=== PATIENT | male | born 1965 | race African-American/Black ===

== ENCOUNTER 2018-07-12 18:54 | Observation (INO) | payer BC ==
--- NOTE | 2018-07-12 19:09 | EDM.PDOC ---
ED HPI GENERAL MEDICAL PROBLEM - General Chief Complaint: Neuro Symptoms/Deficits Stated Complaint: STOKE Time Seen by Provider: 07/12/18 19:01 - History of Present Illness INITIAL COMMENTS - FREE TEXT/NARRATIVE: HISTORY AND PHYSICAL: History of present illness: Patient is 53-year-old black male presents with a concern of left facial numbness and weakness in left arm numbness that started approximately 3 PM he states he noticed when drinking any liquid would travel down his face. He denies postauricular pain patient denies chest pain shortness of breath or other concern. Review of systems: As per history of present illness and below otherwise all systems reviewed and negative. Past medical history: As per history of present illness and as reviewed below otherwise noncontributory. Surgical history: As per history of present illness and as reviewed below otherwise noncontributory. Social history: No reported history of drug or alcohol abuse. Family history: As per history of present illness and as reviewed below otherwise noncontributory. Physical exam: HEENT: Atraumatic, normocephalic, pupils reactive, negative for conjunctival pallor or scleral icterus, mucous membranes moist, throat clear, neck supple, nontender, trachea midline. Lungs: Clear to auscultation, breath sounds equal bilaterally, chest nontender. Heart: S1S2, regular, negative for clicks, rubs, or JVD. Abdomen: Soft, nondistended, nontender. Negative for masses or hepatosplenomegaly. Negative for costovertebral tenderness. Pelvis: Stable nontender. Genitourinary: Deferred. Rectal: Deferred. Extremities: Atraumatic, negative for cords or calf pain. Neurovascular unremarkable. Neuro: Awake, alert, oriented. Patient has left facial droop paresthesia noted there does appear to be sparing of his left forehead he has subjective paresthesia in his left upper extremity there is no other motor or sensory deficits and cranial nerves are otherwise intact Diagnostics: CBC CMP troponin PT/INR chest x-ray EKG CT brain Therapeutics: IV O2 monitor Impression: #1 Left facial droop etiology to be determined #2 subjective paresthesia left upper extremity Definitive disposition and diagnosis as appropriate pending reevaluation and review of above. - Related Data Allergies Allergy/AdvReac Type Severity Reaction Status Date / Time No Known Allergies Allergy Verified 07/12/18 19:39 Home Meds: Home Meds hydroCHLOROthiazide [Hydrochlorothiazide] 1 tab PO DAILY 07/12/18 [History] ED ROS GENERAL - Review of Systems Review Of Systems: ROS reveals no pertinent complaints other than HPI. ED EXAM, GENERAL - Physical Exam Exam: See Below (See dictation) Course - Vital Signs Last Recorded V/S: Last Vital Signs Temp 36.4 C 07/12/18 18:54 Pulse 70 07/12/18 18:54 Resp 18 07/12/18 18:54 BP 173/95 H 07/12/18 18:54 Pulse Ox 98 07/12/18 18:54 - Orders/Labs/Meds Orders: Active Orders 24 hr Category Date Time Status Antiembolic Devices [RC] PER UNIT ROUTINE Care 07/12/18 20:40 Active EKG Documentation Completion [RC] STAT Care 07/12/18 19:03 Active Oxygen Therapy [RC] PRN Care 07/12/18 20:39 Active Up ad Michela [RC] ASDIRECTED Care 07/12/18 20:39 Active VTE/DVT Education [RC] PER UNIT ROUTINE Care 07/12/18 20:39 Active Vital Signs [RC] Q4H Care 07/12/18 20:39 Active Regular Diet [DIET] Diet 07/12/18 Breakfast Active Brain w wo Cont [MR] Stat Exams 07/12/18 20:42 Ordered BASIC METABOLIC PANEL,BMP [CHEM] AM Lab 07/13/18 05:11 Ordered CBC WITH AUTO DIFF [HEME] AM Lab 07/13/18 05:11 Ordered GLYCOSYLATED HEMOGLOBIN,HGBA1C [CHEM] AM Lab 07/13/18 05:11 Ordered MAGNESIUM [CHEM] Stat Lab 07/12/18 19:17 Received Sodium Chloride 0.9% [Normal Saline] 1,000 ml Med 07/12/18 19:15 Active IV STAT Sequential Compression Device [OM.PC] Per Unit Routine Oth 07/12/18 20:40 Ordered Resuscitation Status Routine Resus Stat 07/12/18 20:39 Ordered Medication Orders Sodium Chloride (Normal Saline) 1,000 mls @ 125 mls/hr IV STAT GLORY Last Admin: 07/12/18 19:28 Dose: 125 mls/hr Labs: Laboratory Tests 07/12/18 07/12/18 07/12/18 Range/Units 19:17 19:17 19:17 WBC 13.62 H (4.0-11.0) K/uL RBC 4.96 (4.50-5.90) M/uL Hgb 15.1 (13.0-17.0) g/dL Hct 44.6 (38.0-50.0) % MCV 89.9 (80.0-98.0) fL MCH 30.4 (27.0-32.0) pg MCHC 33.9 (31.0-37.0) g/dL RDW Std Deviation 50.3 (28.0-62.0) fl RDW Coeff of Chary 15 (11.0-15.0) % Plt Count 318 (150-400) K/uL MPV 9.10 (7.40-12.00) fL Neut % (Auto) 57.5 (48.0-80.0) % Lymph % (Auto) 32.2 (16.0-40.0) % [place]ullen % (Auto) 8.4 (0.0-15.0) % Eos % (Auto) 1.7 (0.0-7.0) % Baso % (Auto) 0.2 (0.0-1.5) % Neut # (Auto) 7.8 H (1.4-5.7) K/uL Lymph # (Auto) 4.4 H (0.6-2.4) K/uL [place]mullen # (Auto) 1.1 H (0.0-0.8) K/uL Eos # (Auto) 0.2 (0.0-0.7) K/uL Baso # (Auto) 0.0 (0.0-0.1) K/uL Nucleated RBC % 0.0 /100WBC Nucleated RBCs # 0 K/uL INR 0.92 Sodium 137 (136-148) mmol/L Potassium 3.5 (3.5-5.1) mmol/L Chloride 102 (98-107) mmol/L Carbon Dioxide 23.9 (21.0-32.0) mmol/L BUN 10 (7.0-18.0) mg/dL Creatinine 1.2 (0.8-1.3) mg/dL Est Cr Clr Drug Dosing TNP Estimated GFR (MDRD) > 60.0 ml/min Glucose 133 H (74-106) mg/dL Calcium 8.9 (8.5-10.1) mg/dL Total Bilirubin 0.2 (0.2-1.0) mg/dL AST 12 L (15-37) IU/L ALT 27 (14-63) IU/L Alkaline Phosphatase 119 H (46-116) U/L Troponin I < 0.050 (0.000-0.056) ng/mL Total Protein 7.3 (6.4-8.2) g/dL Albumin 3.5 (3.4-5.0) g/dL Globulin 3.8 (2.6-4.0) g/dL Albumin/Globulin Ratio 0.9 (0.9-1.6) TSH 3rd Generation 1.68 (0.36-3.74) uIU/mL Urine Color Urine Appearance Urine pH (5.0-8.0) Ur Specific [place] (1.001-1.035) Urine Protein (NEGATIVE) mg/dL Urine Glucose (UA) (NEGATIVE) mg/dL Urine Ketones (NEGATIVE) mg/dL Urine Occult Blood (NEGATIVE) Urine Nitrite (NEGATIVE) Urine Bilirubin (NEGATIVE) Urine Urobilinogen (<2.0) EU/dL Ur Leukocyte Esterase (NEGATIVE) Urine RBC (0-2/HPF) Urine WBC (0-5/HPF) Ur Epithelial Cells (NONE-FEW) Urine Bacteria (NEGATIVE) Urine Opiates Screen (NEGATIVE) Ur Oxycodone Screen (NEGATIVE) Urine Methadone Screen (NEGATIVE) Ur Barbiturates Screen (NEGATIVE) Ur Phencyclidine Scrn (NEGATIVE) Ur Amphetamine Screen (NEGATIVE) U Methamphetamines Scrn (NEGATIVE) U Benzodiazepines Scrn (NEGATIVE) U Cocaine Metab Screen (NEGATIVE) U Marijuana (THC) Screen (NEGATIVE) 07/12/18 07/12/18 Range/Units 20:24 20:24 WBC (4.0-11.0) K/uL RBC (4.50-5.90) M/uL Hgb (13.0-17.0) g/dL Hct (38.0-50.0) % MCV (80.0-98.0) fL MCH (27.0-32.0) pg MCHC (31.0-37.0) g/dL RDW Std Deviation (28.0-62.0) fl RDW Coeff of Chary (11.0-15.0) % Plt Count (150-400) K/uL MPV (7.40-12.00) fL Neut % (Auto) (48.0-80.0) % Lymph % (Auto) (16.0-40.0) % [place]mullen % (Auto) (0.0-15.0) % Eos % (Auto) (0.0-7.0) % Baso % (Auto) (0.0-1.5) % Neut # (Auto) (1.4-5.7) K/uL Lymph # (Auto) (0.6-2.4) K/uL [place]mullen # (Auto) (0.0-0.8) K/uL Eos # (Auto) (0.0-0.7) K/uL Baso # (Auto) (0.0-0.1) K/uL Nucleated RBC % /100WBC Nucleated RBCs # K/uL INR Sodium (136-148) mmol/L Potassium (3.5-5.1) mmol/L Chloride (98-107) mmol/L Carbon Dioxide (21.0-32.0) mmol/L BUN (7.0-18.0) mg/dL Creatinine (0.8-1.3) mg/dL Est Cr Clr Drug Dosing Estimated GFR (MDRD) ml/min Glucose (74-106) mg/dL Calcium (8.5-10.1) mg/dL Total Bilirubin (0.2-1.0) mg/dL AST (15-37) IU/L ALT (14-63) IU/L Alkaline Phosphatase (46-116) U/L Troponin I (0.000-0.056) ng/mL Total Protein (6.4-8.2) g/dL Albumin (3.4-5.0) g/dL Globulin (2.6-4.0) g/dL Albumin/Globulin Ratio (0.9-1.6) TSH 3rd Generation (0.36-3.74) uIU/mL Urine Color YELLOW Urine Appearance CLEAR Urine pH 6.0 (5.0-8.0) Ur Specific [place] 1.015 (1.001-1.035) Urine Protein NEGATIVE (NEGATIVE) mg/dL Urine Glucose (UA) NEGATIVE (NEGATIVE) mg/dL Urine Ketones NEGATIVE (NEGATIVE) mg/dL Urine Occult Blood TRACE-INTACT H (NEGATIVE) Urine Nitrite NEGATIVE (NEGATIVE) Urine Bilirubin NEGATIVE (NEGATIVE) Urine Urobilinogen 0.2 (<2.0) EU/dL Ur Leukocyte Esterase NEGATIVE (NEGATIVE) Urine RBC 0-2 (0-2/HPF) Urine WBC 0-2 (0-5/HPF) Ur Epithelial Cells RARE (NONE-FEW) Urine Bacteria RARE (NEGATIVE) Urine Opiates Screen NEGATIVE (NEGATIVE) Ur Oxycodone Screen NEGATIVE (NEGATIVE) Urine Methadone Screen NEGATIVE (NEGATIVE) Ur Barbiturates Screen NEGATIVE (NEGATIVE) Ur Phencyclidine Scrn NEGATIVE (NEGATIVE) Ur Amphetamine Screen NEGATIVE (NEGATIVE) U Methamphetamines Scrn NEGATIVE (NEGATIVE) U Benzodiazepines Scrn NEGATIVE (NEGATIVE) U Cocaine Metab Screen NEGATIVE (NEGATIVE) U Marijuana (THC) Screen NEGATIVE (NEGATIVE) Meds: Medications Generic Name Dose Route Start Last Admin Trade Name Freq PRN Reason Stop Dose Admin Sodium Chloride 1,000 mls @ 125 mls/hr 07/12/18 19:15 07/12/18 19:28 Normal Saline IV 125 mls/hr STAT GLORY Administration Departure - Departure Time of Disposition: 20:55 Disposition: Refer to Observation Condition: Good Clinical Impression: Facial paresis, Paresthesia - Discharge Information Referrals: PCP,Unknown [Primary Care Provider] - Forms: ED Department Discharge - My Orders Last 24 Hours: My Active Orders 07/12/18 19:03 EKG Documentation Completion [RC] STAT 07/12/18 19:15 Sodium Chloride 0.9% [Normal Saline] 1,000 ml IV STAT - Assessment/Plan Last 24 Hours: My Active Orders 07/12/18 19:03 EKG Documentation Completion [RC] STAT 07/12/18 19:15 Sodium Chloride 0.9% [Normal Saline] 1,000 ml IV STAT
[2018-07-12] MEDS: Sodium Chloride 0.9% 1,000 ML IV SCH (19:28)
--- NOTE | 2018-07-12 19:31 | CT ---
INDICATION: Altered mental status. COMPARISON: None available. TECHNIQUE: CT examination of the head was performed with 3 mm thick axial sections without intravenous contrast. Images were obtained from the vertex of the skull through the skull base, and I examined the images with the brain and bone windows. Please note that all CT scans at this facility use dose modulation, iterative reconstruction, and/or weight-based dosing when appropriate to reduce radiation dose to as low as reasonably achievable. FINDINGS: : The brain is normal in appearance for the patient`s age on today`s study, with no sign of mass lesion, mass effect, hemorrhage, or edema. The ventricles and sulci are normal in appearance for the patient`s age. The visualized portions of the orbits are normal in appearance. The visualized portions of the paranasal sinuses and mastoids are clear. The osseous structures are normal in their appearance with no sign of abnormality in the skull base or calvarium. IMPRESSION: Normal noncontrast CT of the head for the patient`s age. Please note that all CT scans at this facility use dose modulation, iterative reconstruction, and/or weight-based dosing when appropriate to reduce radiation dose to as low as reasonably achievable. Dictated by Jatinder Clark MD @ Jul 12 2018 7:27PM Signed by Dr. Jatinder Clark @ Jul 12 2018 7:29PM
[2018-07-12 19:55] LABS: CHLORIDE,CL 102 mmol/L (98-107); SODIUM,NA 137 mmol/L (136-148)
--- NOTE | 2018-07-12 20:23 | CR ---
HISTORY: Chest pain. Shortness of breath. COMPARISON: None available FINDINGS: A portable semi-erect AP lordotic view of the chest was obtained at 1914 hours. The lungs are clear. No focal or diffuse infiltrates are present. The heart is top-normal in size. The mediastinum is normal in appearance. The osseous structures are normal in appearance for the patient`s age. IMPRESSION: Normal portable chest single view. Dictated by Jatinder Clark MD @ Jul 12 2018 8:21PM Signed by Dr. Jatinder Clark @ Jul 12 2018 8:22PM
--- NOTE | 2018-07-12 20:46 | PCM.HP ---
H&P History of Present Illness - General Date of Service: 07/12/18 - History of Present Illness Initial Comments - Free Text/Narative: 53 yo male with pmh of hypertension who presents with one day history of facial droop. Patient reports for past month he has been having right and left arm numbness. Today his shoulder became numb as well as his left face. He reports he had difficulty controlling the muscles of his mouth and spilt his drink. He reported that his left eye became droopy. He denies any headache or fevers. In the ED he was found to have a normal CT head. He reports the numbness has greatly improved but know his left eyelid twitches uncontrollably. - Related Data Allergies/Adverse Reactions: Allergies Allergy/AdvReac Type Severity Reaction Status Date / Time No Known Allergies Allergy Verified 07/12/18 19:39 Home Medications: Home Meds hydroCHLOROthiazide [Hydrochlorothiazide] 1 tab PO DAILY 07/12/18 [History] Past Medical History Cardiovascular History: Reports: Hypertension - Infectious Disease History Infectious Disease History: Reports: None Social & Family History - Family History Family Medical History: Noncontributory - Tobacco Use Smoking Status *Q: Current Every Day Smoker Years of Tobacco use: 14 Packs/Tins Daily: 0.5 - Recreational Drug Use Recreational Drug Use: No H&P Review of Systems - Review of Systems: Review Of Systems: ROS reveals no pertinent complaints other than HPI. Exam - Exam Exam: See Below - Vital Signs Vital Signs: Last Vital Signs Temp 36.4 C 07/12/18 18:54 Pulse 70 07/12/18 18:54 Resp 18 07/12/18 18:54 BP 173/95 H 07/12/18 18:54 Pulse Ox 98 07/12/18 18:54 Weight: 120 kg - Exam General: Alert, Oriented HEENT: Mucosa Moist & [place], Pupils Equal Lungs: Clear to Auscultation, Normal Respiratory Effort Cardiovascular: Regular Rate, Regular Rhythm GI/Abdominal Exam: Soft, Non-Tender Extremities: Non-Tender, No Pedal Edema Skin: Warm, Dry, Intact Neurological: Cranial Nerves Intact, Reflexes Equal Bilateral, Strength Equal Bilateral, Normal Speech, Normal Tone, Sensation Intact, Other (left eylid twitching) - Patient Data Lab Results Last 24 hrs: Laboratory Results - last 24 hr 07/12/18 07/12/18 07/12/18 Range/Units 19:17 19:17 19:17 WBC 13.62 H (4.0-11.0) K/uL RBC 4.96 (4.50-5.90) M/uL Hgb 15.1 (13.0-17.0) g/dL Hct 44.6 (38.0-50.0) % MCV 89.9 (80.0-98.0) fL MCH 30.4 (27.0-32.0) pg MCHC 33.9 (31.0-37.0) g/dL RDW Std Deviation 50.3 (28.0-62.0) fl RDW Coeff of Chary 15 (11.0-15.0) % Plt Count 318 (150-400) K/uL MPV 9.10 (7.40-12.00) fL Neut % (Auto) 57.5 (48.0-80.0) % Lymph % (Auto) 32.2 (16.0-40.0) % [place] % (Auto) 8.4 (0.0-15.0) % Eos % (Auto) 1.7 (0.0-7.0) % Baso % (Auto) 0.2 (0.0-1.5) % Neut # (Auto) 7.8 H (1.4-5.7) K/uL Lymph # (Auto) 4.4 H (0.6-2.4) K/uL [place] # (Auto) 1.1 H (0.0-0.8) K/uL Eos # (Auto) 0.2 (0.0-0.7) K/uL Baso # (Auto) 0.0 (0.0-0.1) K/uL Nucleated RBC % 0.0 /100WBC Nucleated RBCs # 0 K/uL INR 0.92 Sodium 137 (136-148) mmol/L Potassium 3.5 (3.5-5.1) mmol/L Chloride 102 (98-107) mmol/L Carbon Dioxide 23.9 (21.0-32.0) mmol/L BUN 10 (7.0-18.0) mg/dL Creatinine 1.2 (0.8-1.3) mg/dL Est Cr Clr Drug Dosing TNP Estimated GFR (MDRD) > 60.0 ml/min Glucose 133 H (74-106) mg/dL Calcium 8.9 (8.5-10.1) mg/dL Total Bilirubin 0.2 (0.2-1.0) mg/dL AST 12 L (15-37) IU/L ALT 27 (14-63) IU/L Alkaline Phosphatase 119 H (46-116) U/L Troponin I < 0.050 (0.000-0.056) ng/mL Total Protein 7.3 (6.4-8.2) g/dL Albumin 3.5 (3.4-5.0) g/dL Globulin 3.8 (2.6-4.0) g/dL Albumin/Globulin Ratio 0.9 (0.9-1.6) TSH 3rd Generation 1.68 (0.36-3.74) uIU/mL Result Diagrams: 07/12/18 19:17 07/12/18 19:17 Problem List Initiated/Reviewed/Updated: Yes Orders Last 24hrs: Active Orders 24 hr Category Date Time Status Antiembolic Devices [RC] PER UNIT ROUTINE Care 07/12/18 20:40 Ordered EKG Documentation Completion [RC] STAT Care 07/12/18 19:03 Active Oxygen Therapy [RC] PRN Care 07/12/18 20:39 Ordered Up ad Michela [RC] ASDIRECTED Care 07/12/18 20:39 Ordered VTE/DVT Education [RC] PER UNIT ROUTINE Care 07/12/18 20:39 Ordered Vital Signs [RC] Q4H Care 07/12/18 20:39 Ordered Regular Diet [DIET] Diet 07/12/18 Breakfast Ordered BASIC METABOLIC PANEL,BMP [CHEM] AM Lab 07/13/18 05:11 Ordered CBC WITH AUTO DIFF [HEME] AM Lab 07/13/18 05:11 Ordered DRUG SCREEN, URINE [URCHEM] Stat Lab 07/12/18 20:24 Received MAGNESIUM [CHEM] Stat Lab 07/12/18 20:38 Ordered UA RFX TAN AND CULT IF INDIC [URIN] Stat Lab 07/12/18 20:24 Received Sodium Chloride 0.9% [Normal Saline] 1,000 ml Med 07/12/18 19:15 Active IV STAT Sequential Compression Device [OM.PC] Per Unit Routine Oth 07/12/18 20:40 Ordered Resuscitation Status Routine Resus Stat 07/12/18 20:39 Ordered Medication Orders Sodium Chloride (Normal Saline) 1,000 mls @ 125 mls/hr IV STAT GLORY Last Admin: 07/12/18 19:28 Dose: 125 mls/hr Assessment/Plan Comment:: 53 yo male admitted with paresthesia and facial droop. This appears likely to be a peripheral neuropathy. We will monitor overnight on telemetry.
[2018-07-13] MEDS: Sodium Chloride 0.9% 1,000 ML IV SCH ×2 (00:43→09:33)
[2018-07-13 06:50] LABS: CHLORIDE,CL 104 mmol/L (98-107); SODIUM,NA 140 mmol/L (136-148)
[2018-07-13 06:56] LABS: HEMOGLOBIN A1C 6.7 % (4.5-6.2)
--- NOTE | 2018-07-13 09:44 | PCM.PN ---
- General Info Date of Service: 07/13/18 Subjective Update: The patient is a 53 year old male who was admitted for facial droop and numbness /tingling in his arms. He reports improvement in the numbness/tingling of his arms and some improvement in his face. He reports difficulty drinking. We attempted a MRI today but he was unable to tolerate it even with Ativan. - Review of Systems General: Reports: No Symptoms HEENT: Reports: No Symptoms Pulmonary: Reports: No Symptoms Cardiovascular: Reports: No Symptoms Gastrointestinal: Reports: No Symptoms Genitourinary: Reports: No Symptoms Musculoskeletal: Reports: No Symptoms Skin: Reports: No Symptoms Neurological: Reports: No Symptoms Psychiatric: Reports: No Symptoms - Patient Data Vitals - Most Recent: Last Vital Signs Temp 98.1 F 07/13/18 07:32 Pulse 59 L 07/13/18 07:32 Resp 16 07/13/18 07:32 BP 134/74 07/13/18 07:32 Pulse Ox 96 07/13/18 07:32 Weight - Most Recent: 118.252 kg I&O - Last 24 Hours: Intake & Output 07/12/18 07/13/18 07/13/18 22:59 06:59 14:59 Intake Total 1480 Balance 1480 Lab Results Last 24 Hours: Laboratory Results - last 24 hr 07/12/18 07/12/18 07/12/18 Range/Units 19:17 19:17 19:17 WBC 13.62 H (4.0-11.0) K/uL RBC 4.96 (4.50-5.90) M/uL Hgb 15.1 (13.0-17.0) g/dL Hct 44.6 (38.0-50.0) % MCV 89.9 (80.0-98.0) fL MCH 30.4 (27.0-32.0) pg MCHC 33.9 (31.0-37.0) g/dL RDW Std Deviation 50.3 (28.0-62.0) fl RDW Coeff of Chary 15 (11.0-15.0) % Plt Count 318 (150-400) K/uL MPV 9.10 (7.40-12.00) fL Neut % (Auto) 57.5 (48.0-80.0) % Lymph % (Auto) 32.2 (16.0-40.0) % [place] % (Auto) 8.4 (0.0-15.0) % Eos % (Auto) 1.7 (0.0-7.0) % Baso % (Auto) 0.2 (0.0-1.5) % Neut # (Auto) 7.8 H (1.4-5.7) K/uL Lymph # (Auto) 4.4 H (0.6-2.4) K/uL [place] # (Auto) 1.1 H (0.0-0.8) K/uL Eos # (Auto) 0.2 (0.0-0.7) K/uL Baso # (Auto) 0.0 (0.0-0.1) K/uL Nucleated RBC % 0.0 /100WBC Nucleated RBCs # 0 K/uL INR 0.92 Sodium 137 (136-148) mmol/L Potassium 3.5 (3.5-5.1) mmol/L Chloride 102 (98-107) mmol/L Carbon Dioxide 23.9 (21.0-32.0) mmol/L BUN 10 (7.0-18.0) mg/dL Creatinine 1.2 (0.8-1.3) mg/dL Est Cr Clr Drug Dosing TNP Estimated GFR (MDRD) > 60.0 ml/min Glucose 133 H (74-106) mg/dL Hemoglobin A1c (4.5-6.2) % Calcium 8.9 (8.5-10.1) mg/dL Magnesium (1.8-2.4) mg/dL Total Bilirubin 0.2 (0.2-1.0) mg/dL AST 12 L (15-37) IU/L ALT 27 (14-63) IU/L Alkaline Phosphatase 119 H (46-116) U/L Troponin I < 0.050 (0.000-0.056) ng/mL Total Protein 7.3 (6.4-8.2) g/dL Albumin 3.5 (3.4-5.0) g/dL Globulin 3.8 (2.6-4.0) g/dL Albumin/Globulin Ratio 0.9 (0.9-1.6) TSH 3rd Generation 1.68 (0.36-3.74) uIU/mL Urine Color Urine Appearance Urine pH (5.0-8.0) Ur Specific [place] (1.001-1.035) Urine Protein (NEGATIVE) mg/dL Urine Glucose (UA) (NEGATIVE) mg/dL Urine Ketones (NEGATIVE) mg/dL Urine Occult Blood (NEGATIVE) Urine Nitrite (NEGATIVE) Urine Bilirubin (NEGATIVE) Urine Urobilinogen (<2.0) EU/dL Ur Leukocyte Esterase (NEGATIVE) Urine RBC (0-2/HPF) Urine WBC (0-5/HPF) Ur Epithelial Cells (NONE-FEW) Urine Bacteria (NEGATIVE) Urine Opiates Screen (NEGATIVE) Ur Oxycodone Screen (NEGATIVE) Urine Methadone Screen (NEGATIVE) Ur Barbiturates Screen (NEGATIVE) Ur Phencyclidine Scrn (NEGATIVE) Ur Amphetamine Screen (NEGATIVE) U Methamphetamines Scrn (NEGATIVE) U Benzodiazepines Scrn (NEGATIVE) U Cocaine Metab Screen (NEGATIVE) U Marijuana (THC) Screen (NEGATIVE) 07/12/18 07/12/18 07/12/18 Range/Units 19:17 20:24 20:24 WBC (4.0-11.0) K/uL RBC (4.50-5.90) M/uL Hgb (13.0-17.0) g/dL Hct (38.0-50.0) % MCV (80.0-98.0) fL MCH (27.0-32.0) pg MCHC (31.0-37.0) g/dL RDW Std Deviation (28.0-62.0) fl RDW Coeff of Chary (11.0-15.0) % Plt Count (150-400) K/uL MPV (7.40-12.00) fL Neut % (Auto) (48.0-80.0) % Lymph % (Auto) (16.0-40.0) % [place] % (Auto) (0.0-15.0) % Eos % (Auto) (0.0-7.0) % Baso % (Auto) (0.0-1.5) % Neut # (Auto) (1.4-5.7) K/uL Lymph # (Auto) (0.6-2.4) K/uL [place] # (Auto) (0.0-0.8) K/uL Eos # (Auto) (0.0-0.7) K/uL Baso # (Auto) (0.0-0.1) K/uL Nucleated RBC % /100WBC Nucleated RBCs # K/uL INR Sodium (136-148) mmol/L Potassium (3.5-5.1) mmol/L Chloride (98-107) mmol/L Carbon Dioxide (21.0-32.0) mmol/L BUN (7.0-18.0) mg/dL Creatinine (0.8-1.3) mg/dL Est Cr Clr Drug Dosing Estimated GFR (MDRD) ml/min Glucose (74-106) mg/dL Hemoglobin A1c (4.5-6.2) % Calcium (8.5-10.1) mg/dL Magnesium 1.7 L (1.8-2.4) mg/dL Total Bilirubin (0.2-1.0) mg/dL AST (15-37) IU/L ALT (14-63) IU/L Alkaline Phosphatase (46-116) U/L Troponin I (0.000-0.056) ng/mL Total Protein (6.4-8.2) g/dL Albumin (3.4-5.0) g/dL Globulin (2.6-4.0) g/dL Albumin/Globulin Ratio (0.9-1.6) TSH 3rd Generation (0.36-3.74) uIU/mL Urine Color YELLOW Urine Appearance CLEAR Urine pH 6.0 (5.0-8.0) Ur Specific [place] 1.015 (1.001-1.035) Urine Protein NEGATIVE (NEGATIVE) mg/dL Urine Glucose (UA) NEGATIVE (NEGATIVE) mg/dL Urine Ketones NEGATIVE (NEGATIVE) mg/dL Urine Occult Blood TRACE-INTACT H (NEGATIVE) Urine Nitrite NEGATIVE (NEGATIVE) Urine Bilirubin NEGATIVE (NEGATIVE) Urine Urobilinogen 0.2 (<2.0) EU/dL Ur Leukocyte Esterase NEGATIVE (NEGATIVE) Urine RBC 0-2 (0-2/HPF) Urine WBC 0-2 (0-5/HPF) Ur Epithelial Cells RARE (NONE-FEW) Urine Bacteria RARE (NEGATIVE) Urine Opiates Screen NEGATIVE (NEGATIVE) Ur Oxycodone Screen NEGATIVE (NEGATIVE) Urine Methadone Screen NEGATIVE (NEGATIVE) Ur Barbiturates Screen NEGATIVE (NEGATIVE) Ur Phencyclidine Scrn NEGATIVE (NEGATIVE) Ur Amphetamine Screen NEGATIVE (NEGATIVE) U Methamphetamines Scrn NEGATIVE (NEGATIVE) U Benzodiazepines Scrn NEGATIVE (NEGATIVE) U Cocaine Metab Screen NEGATIVE (NEGATIVE) U Marijuana (THC) Screen NEGATIVE (NEGATIVE) 07/13/18 07/13/18 07/13/18 Range/Units 05:40 05:40 05:40 WBC 11.19 H (4.0-11.0) K/uL RBC 4.87 (4.50-5.90) M/uL Hgb 14.6 (13.0-17.0) g/dL Hct 43.9 (38.0-50.0) % MCV 90.1 (80.0-98.0) fL MCH 30.0 (27.0-32.0) pg MCHC 33.3 (31.0-37.0) g/dL RDW Std Deviation 50.9 (28.0-62.0) fl RDW Coeff of Chary 15 (11.0-15.0) % Plt Count 303 (150-400) K/uL MPV 9.60 (7.40-12.00) fL Neut % (Auto) 59.1 (48.0-80.0) % Lymph % (Auto) 32.4 (16.0-40.0) % [place] % (Auto) 6.8 (0.0-15.0) % Eos % (Auto) 1.5 (0.0-7.0) % Baso % (Auto) 0.2 (0.0-1.5) % Neut # (Auto) 6.6 H (1.4-5.7) K/uL Lymph # (Auto) 3.6 H (0.6-2.4) K/uL [place] # (Auto) 0.8 (0.0-0.8) K/uL Eos # (Auto) 0.2 (0.0-0.7) K/uL Baso # (Auto) 0.0 (0.0-0.1) K/uL Nucleated RBC % 0.0 /100WBC Nucleated RBCs # 0 K/uL INR Sodium 140 (136-148) mmol/L Potassium 4.2 (3.5-5.1) mmol/L Chloride 104 (98-107) mmol/L Carbon Dioxide 26.6 (21.0-32.0) mmol/L BUN 9 (7.0-18.0) mg/dL Creatinine 1.1 (0.8-1.3) mg/dL Est Cr Clr Drug Dosing 82.72 Estimated GFR (MDRD) > 60.0 ml/min Glucose 113 H (74-106) mg/dL Hemoglobin A1c 6.7 H (4.5-6.2) % Calcium 8.4 L (8.5-10.1) mg/dL Magnesium (1.8-2.4) mg/dL Total Bilirubin (0.2-1.0) mg/dL AST (15-37) IU/L ALT (14-63) IU/L Alkaline Phosphatase (46-116) U/L Troponin I (0.000-0.056) ng/mL Total Protein (6.4-8.2) g/dL Albumin (3.4-5.0) g/dL Globulin (2.6-4.0) g/dL Albumin/Globulin Ratio (0.9-1.6) TSH 3rd Generation (0.36-3.74) uIU/mL Urine Color Urine Appearance Urine pH (5.0-8.0) Ur Specific [place] (1.001-1.035) Urine Protein (NEGATIVE) mg/dL Urine Glucose (UA) (NEGATIVE) mg/dL Urine Ketones (NEGATIVE) mg/dL Urine Occult Blood (NEGATIVE) Urine Nitrite (NEGATIVE) Urine Bilirubin (NEGATIVE) Urine Urobilinogen (<2.0) EU/dL Ur Leukocyte Esterase (NEGATIVE) Urine RBC (0-2/HPF) Urine WBC (0-5/HPF) Ur Epithelial Cells (NONE-FEW) Urine Bacteria (NEGATIVE) Urine Opiates Screen (NEGATIVE) Ur Oxycodone Screen (NEGATIVE) Urine Methadone Screen (NEGATIVE) Ur Barbiturates Screen (NEGATIVE) Ur Phencyclidine Scrn (NEGATIVE) Ur Amphetamine Screen (NEGATIVE) U Methamphetamines Scrn (NEGATIVE) U Benzodiazepines Scrn (NEGATIVE) U Cocaine Metab Screen (NEGATIVE) U Marijuana (THC) Screen (NEGATIVE) Med Orders - Current: Current Medications Sodium Chloride (Normal Saline) 1,000 mls @ 125 mls/hr IV STAT GLORY Last Admin: 07/13/18 09:33 Dose: 125 mls/hr - Exam General: Alert, Oriented, Cooperative HEENT: Pupils Equal, Pupils Reactive, EOMI, Mucous Membr. Moist/[place] Lungs: Clear to Auscultation, Normal Respiratory Effort Cardiovascular: Regular Rate, Regular Rhythm GI/Abdominal Exam: Normal Bowel Sounds, Soft, Non-Tender, No Distention Extremities: No Pedal Edema Skin: Warm, Dry Neurological: Other (right side facial asymmetry with smiling, forehead wrinkles present, no tongue deviation, strength 5/5 in all extremities.) Psy/Mental Status: Alert, Normal Affect, Normal Mood - Problem List Review Problem List Initiated/Reviewed/Updated: Yes - Plan Plan:: 1. Facial droop with paresthesias of the arms- we attempted to get a MRI of the brain but patient was unable to tolerate the machine due to claustrophobia. We had given Ativan prior to imaging. Dr. Rod, neuro, consulted and will appreciate her recommendations 2. New DMII- Ha1c of 6.7%, DNE consulted. We discussed starting metformin. Patient is unsure if he wants to start the medication or just work on diet and exercise. Possible discharge later today after consults.
[2018-07-13] MEDS ORDERED: LORazepam 2 MG/ML SDV IVPUSH ONE (11:00)
[2018-07-13] MEDS ORDERED: Nicotine 21 MG/24 Hr Patch TRDERM SCH (14:30)
--- NOTE | 2018-07-13 16:50 | PCM.DCSUM1 ---
<Sandy Crawford - Last Filed: 07/13/18 17:13> Discharge Summary - Hospital Course HPI Initial Comments: Admission Date: 07/13/18 Discharge Date:07/14/18 Admission Diagnosis: 1. Facial droop 2. Paresthesias of the upper extremity Discharge Diagnosis: 1. Byers's palsy 2. Paresthesias of the upper extremity, unknown origin- improved 3. New diagnosis of type 2 diabetes Procedures: None Consults: None Hospital Course: The patient is a 53-year-old male presented to the ER with right-sided facial droop and paresthesias in his upper extremities. Workup in the ER included lab work that showed a slight white count, but improved, negative UA, negative UDS negative, Chest x-ray negative, and head CT that was negative. The patient was admitted to the medical surgical floor for observation. We attempted to do an MRI of the brain and the patient was given Ativan prior to procedure, but he is unable to tolerate it due to claustrophobia. We spoke to Dr. Rod who was consulted and believes he has Byers's palsy. She recommended repeating a CT in a few days to make sure no changes in imaging that may indicate a stroke. She recommended course of steroids for Byers's palsy. Patient was newly diagnosed with type 2 diabetes with a hemoglobin A1c of 6.7. We offered to start him metformin, but he declined. He decided he'd rather try diet and exercise. The diabetic nurse educator did speak with him about diet, exercise, checking glucose and gave him her contact information with any questions. By day discharge, he thought his facial droop had improved and he was no longer experiencing paresthesias in the upper extremities Disposition: Home Discharge Condition: Vitals stable, tolerating oral diet, ambulating without difficulty Discharge Instructions: Diabetic diet as tolerated, no strenuous activity until cleared by repeat CT scan, take medications as prescribed. Symptoms to report physician include fever, chills, chest pain, shortness of breath, abdominal pain , slurred speech, weakness in the extremities, facial droop, drainage, discharge , erythema, or not improving as expected. Discharge Medications: hydroCHLOROthiazide [Hydrochlorothiazide] 1 tab PO DAILY Nicotine [Habitrol] 21 mg TRDERM DAILY 14 Days predniSONE [Prednisone] 60 mg PO DAILY 7 Days Follow-up: PCP- 1. Dr. Moeller on 07/23/18 2. Neurology- Dr. Rod on 09/23/[address] on 07/15/18 - Discharge Data Discharge Date: 07/13/18 Discharge Disposition: Home, Self-Care 01 Condition: Good - Patient Summary/Data Consults: Consultations 07/13/18 10:47 Consult to Diabetic Nurse Specialist [CONS] Routine 07/13/18 14:27 Consult to Physician [CONS] Routine - Discharge Plan Prescriptions/Med Rec: Nicotine [Habitrol] 21 mg TRDERM DAILY 14 Days #14 patch predniSONE [Prednisone] 60 mg PO DAILY 7 Days #21 tablet Home Medications: Home Meds hydroCHLOROthiazide [Hydrochlorothiazide] 1 tab PO DAILY 07/12/18 [History] Nicotine [Habitrol] 21 mg TRDERM DAILY 14 Days #14 patch 07/13/18 [Rx] predniSONE [Prednisone] 60 mg PO DAILY 7 Days #21 tablet 07/13/18 [Rx] Patient Handouts: Byers Palsy, Adult, Nicotine skin patches, Prednisone tablets , Paresthesia, [id number] Referrals: Lalo Olmstead MD [Resident] - 07/23/18 2:00 [facility] - Monica Rod MD [Physician] - 09/23/18 8:30 am () - Discharge Summary/Plan Comment DC Time >30 min.: Yes - Patient Data Vitals - Most Recent: Last Vital Signs Temp 98.5 F 07/13/18 12:00 Pulse 59 L 07/13/18 12:00 Resp 18 07/13/18 12:00 BP 145/80 H 07/13/18 12:00 Pulse Ox 98 07/13/18 12:00 Weight - Most Recent: 118.252 kg I&O - Last 24 hours: Intake & Output 07/13/18 07/13/18 07/13/18 06:59 14:59 22:59 Intake Total 1480 Balance 1480 Lab Results - Last 24 hrs: Laboratory Results - last 24 hr 07/12/18 07/12/18 07/12/18 Range/Units 19:17 19:17 19:17 WBC 13.62 H (4.0-11.0) K/uL RBC 4.96 (4.50-5.90) M/uL Hgb 15.1 (13.0-17.0) g/dL Hct 44.6 (38.0-50.0) % MCV 89.9 (80.0-98.0) fL MCH 30.4 (27.0-32.0) pg MCHC 33.9 (31.0-37.0) g/dL RDW Std Deviation 50.3 (28.0-62.0) fl RDW Coeff of [place] 15 (11.0-15.0) % Plt Count 318 (150-400) K/uL MPV 9.10 (7.40-12.00) fL Neut % (Auto) 57.5 (48.0-80.0) % Lymph % (Auto) 32.2 (16.0-40.0) % [place] % (Auto) 8.4 (0.0-15.0) % Eos % (Auto) 1.7 (0.0-7.0) % Baso % (Auto) 0.2 (0.0-1.5) % Neut # (Auto) 7.8 H (1.4-5.7) K/uL Lymph # (Auto) 4.4 H (0.6-2.4) K/uL [place] # (Auto) 1.1 H (0.0-0.8) K/uL Eos # (Auto) 0.2 (0.0-0.7) K/uL Baso # (Auto) 0.0 (0.0-0.1) K/uL Nucleated RBC % 0.0 /100WBC Nucleated RBCs # 0 K/uL INR 0.92 Sodium 137 (136-148) mmol/L Potassium 3.5 (3.5-5.1) mmol/L Chloride 102 (98-107) mmol/L Carbon Dioxide 23.9 (21.0-32.0) mmol/L BUN 10 (7.0-18.0) mg/dL Creatinine 1.2 (0.8-1.3) mg/dL Est Cr Clr Drug Dosing TNP Estimated GFR (MDRD) > 60.0 ml/min Glucose 133 H (74-106) mg/dL Hemoglobin A1c (4.5-6.2) % Calcium 8.9 (8.5-10.1) mg/dL Magnesium (1.8-2.4) mg/dL Total Bilirubin 0.2 (0.2-1.0) mg/dL AST 12 L (15-37) IU/L ALT 27 (14-63) IU/L Alkaline Phosphatase 119 H (46-116) U/L Troponin I < 0.050 (0.000-0.056) ng/mL Total Protein 7.3 (6.4-8.2) g/dL Albumin 3.5 (3.4-5.0) g/dL Globulin 3.8 (2.6-4.0) g/dL Albumin/Globulin Ratio 0.9 (0.9-1.6) TSH 3rd Generation 1.68 (0.36-3.74) uIU/mL Urine Color Urine Appearance Urine pH (5.0-8.0) Ur Specific [place] (1.001-1.035) Urine Protein (NEGATIVE) mg/dL Urine Glucose (UA) (NEGATIVE) mg/dL Urine Ketones (NEGATIVE) mg/dL Urine Occult Blood (NEGATIVE) Urine Nitrite (NEGATIVE) Urine Bilirubin (NEGATIVE) Urine Urobilinogen (<2.0) EU/dL Ur Leukocyte Esterase (NEGATIVE) Urine RBC (0-2/HPF) Urine WBC (0-5/HPF) Ur Epithelial Cells (NONE-FEW) Urine Bacteria (NEGATIVE) Urine Opiates Screen (NEGATIVE) Ur Oxycodone Screen (NEGATIVE) Urine Methadone Screen (NEGATIVE) Ur Barbiturates Screen (NEGATIVE) Ur Phencyclidine Scrn (NEGATIVE) Ur Amphetamine Screen (NEGATIVE) U Methamphetamines Scrn (NEGATIVE) U Benzodiazepines Scrn (NEGATIVE) U Cocaine Metab Screen (NEGATIVE) U Marijuana (THC) Screen (NEGATIVE) 07/12/18 07/12/18 07/12/18 Range/Units 19:17 20:24 20:24 WBC (4.0-11.0) K/uL RBC (4.50-5.90) M/uL Hgb (13.0-17.0) g/dL Hct (38.0-50.0) % MCV (80.0-98.0) fL MCH (27.0-32.0) pg MCHC (31.0-37.0) g/dL RDW Std Deviation (28.0-62.0) fl RDW Coeff of [place] (11.0-15.0) % Plt Count (150-400) K/uL MPV (7.40-12.00) fL Neut % (Auto) (48.0-80.0) % Lymph % (Auto) (16.0-40.0) % [place] % (Auto) (0.0-15.0) % Eos % (Auto) (0.0-7.0) % Baso % (Auto) (0.0-1.5) % Neut # (Auto) (1.4-5.7) K/uL Lymph # (Auto) (0.6-2.4) K/uL [place] # (Auto) (0.0-0.8) K/uL Eos # (Auto) (0.0-0.7) K/uL Baso # (Auto) (0.0-0.1) K/uL Nucleated RBC % /100WBC Nucleated RBCs # K/uL INR Sodium (136-148) mmol/L Potassium (3.5-5.1) mmol/L Chloride (98-107) mmol/L Carbon Dioxide (21.0-32.0) mmol/L BUN (7.0-18.0) mg/dL Creatinine (0.8-1.3) mg/dL Est Cr Clr Drug Dosing Estimated GFR (MDRD) ml/min Glucose (74-106) mg/dL Hemoglobin A1c (4.5-6.2) % Calcium (8.5-10.1) mg/dL Magnesium 1.7 L (1.8-2.4) mg/dL Total Bilirubin (0.2-1.0) mg/dL AST (15-37) IU/L ALT (14-63) IU/L Alkaline Phosphatase (46-116) U/L Troponin I (0.000-0.056) ng/mL Total Protein (6.4-8.2) g/dL Albumin (3.4-5.0) g/dL Globulin (2.6-4.0) g/dL Albumin/Globulin Ratio (0.9-1.6) TSH 3rd Generation (0.36-3.74) uIU/mL Urine Color YELLOW Urine Appearance CLEAR Urine pH 6.0 (5.0-8.0) Ur Specific [place] 1.015 (1.001-1.035) Urine Protein NEGATIVE (NEGATIVE) mg/dL Urine Glucose (UA) NEGATIVE (NEGATIVE) mg/dL Urine Ketones NEGATIVE (NEGATIVE) mg/dL Urine Occult Blood TRACE-INTACT H (NEGATIVE) Urine Nitrite NEGATIVE (NEGATIVE) Urine Bilirubin NEGATIVE (NEGATIVE) Urine Urobilinogen 0.2 (<2.0) EU/dL Ur Leukocyte Esterase NEGATIVE (NEGATIVE) Urine RBC 0-2 (0-2/HPF) Urine WBC 0-2 (0-5/HPF) Ur Epithelial Cells RARE (NONE-FEW) Urine Bacteria RARE (NEGATIVE) Urine Opiates Screen NEGATIVE (NEGATIVE) Ur Oxycodone Screen NEGATIVE (NEGATIVE) Urine Methadone Screen NEGATIVE (NEGATIVE) Ur Barbiturates Screen NEGATIVE (NEGATIVE) Ur Phencyclidine Scrn NEGATIVE (NEGATIVE) Ur Amphetamine Screen NEGATIVE (NEGATIVE) U Methamphetamines Scrn NEGATIVE (NEGATIVE) U Benzodiazepines Scrn NEGATIVE (NEGATIVE) U Cocaine Metab Screen NEGATIVE (NEGATIVE) U Marijuana (THC) Screen NEGATIVE (NEGATIVE) 07/13/18 07/13/18 07/13/18 Range/Units 05:40 05:40 05:40 WBC 11.19 H (4.0-11.0) K/uL RBC 4.87 (4.50-5.90) M/uL Hgb 14.6 (13.0-17.0) g/dL Hct 43.9 (38.0-50.0) % MCV 90.1 (80.0-98.0) fL MCH 30.0 (27.0-32.0) pg MCHC 33.3 (31.0-37.0) g/dL RDW Std Deviation 50.9 (28.0-62.0) fl RDW Coeff of [place] 15 (11.0-15.0) % Plt Count 303 (150-400) K/uL MPV 9.60 (7.40-12.00) fL Neut % (Auto) 59.1 (48.0-80.0) % Lymph % (Auto) 32.4 (16.0-40.0) % [place] % (Auto) 6.8 (0.0-15.0) % Eos % (Auto) 1.5 (0.0-7.0) % Baso % (Auto) 0.2 (0.0-1.5) % Neut # (Auto) 6.6 H (1.4-5.7) K/uL Lymph # (Auto) 3.6 H (0.6-2.4) K/uL [place] # (Auto) 0.8 (0.0-0.8) K/uL Eos # (Auto) 0.2 (0.0-0.7) K/uL Baso # (Auto) 0.0 (0.0-0.1) K/uL Nucleated RBC % 0.0 /100WBC Nucleated RBCs # 0 K/uL INR Sodium 140 (136-148) mmol/L Potassium 4.2 (3.5-5.1) mmol/L Chloride 104 (98-107) mmol/L Carbon Dioxide 26.6 (21.0-32.0) mmol/L BUN 9 (7.0-18.0) mg/dL Creatinine 1.1 (0.8-1.3) mg/dL Est Cr Clr Drug Dosing 82.72 Estimated GFR (MDRD) > 60.0 ml/min Glucose 113 H (74-106) mg/dL Hemoglobin A1c 6.7 H (4.5-6.2) % Calcium 8.4 L (8.5-10.1) mg/dL Magnesium (1.8-2.4) mg/dL Total Bilirubin (0.2-1.0) mg/dL AST (15-37) IU/L ALT (14-63) IU/L Alkaline Phosphatase (46-116) U/L Troponin I (0.000-0.056) ng/mL Total Protein (6.4-8.2) g/dL Albumin (3.4-5.0) g/dL Globulin (2.6-4.0) g/dL Albumin/Globulin Ratio (0.9-1.6) TSH 3rd Generation (0.36-3.74) uIU/mL Urine Color Urine Appearance Urine pH (5.0-8.0) Ur Specific [place] (1.001-1.035) Urine Protein (NEGATIVE) mg/dL Urine Glucose (UA) (NEGATIVE) mg/dL Urine Ketones (NEGATIVE) mg/dL Urine Occult Blood (NEGATIVE) Urine Nitrite (NEGATIVE) Urine Bilirubin (NEGATIVE) Urine Urobilinogen (<2.0) EU/dL Ur Leukocyte Esterase (NEGATIVE) Urine RBC (0-2/HPF) Urine WBC (0-5/HPF) Ur Epithelial Cells (NONE-FEW) Urine Bacteria (NEGATIVE) Urine Opiates Screen (NEGATIVE) Ur Oxycodone Screen (NEGATIVE) Urine Methadone Screen (NEGATIVE) Ur Barbiturates Screen (NEGATIVE) Ur Phencyclidine Scrn (NEGATIVE) Ur Amphetamine Screen (NEGATIVE) U Methamphetamines Scrn (NEGATIVE) U Benzodiazepines Scrn (NEGATIVE) U Cocaine Metab Screen (NEGATIVE) U Marijuana (THC) Screen (NEGATIVE) Med Orders - Current: Current Medications Sodium Chloride (Normal Saline) 1,000 mls @ 125 mls/hr IV STAT GLORY Last Admin: 07/13/18 09:33 Dose: 125 mls/hr Nicotine (Habitrol) 21 mg TRDERM DAILY GLORY Discontinued Medications Lorazepam (Ativan) 1 mg IVPUSH ONETIME ONE Stop: 07/13/18 11:01 Last Admin: 07/13/18 12:47 Dose: 1 mg <Aaron Lambert - Last Filed: 07/14/18 11:50> Discharge Summary - Patient Summary/Data Consults: Consultations 07/13/18 10:47 Consult to Diabetic Nurse Specialist [CONS] Routine 07/13/18 14:27 Consult to Physician [CONS] Routine - Patient Data Vitals - Most Recent: Last Vital Signs Temp 36.4 C 07/13/18 16:00 Pulse 65 07/13/18 16:00 Resp 18 07/13/18 16:00 BP 137/73 07/13/18 16:00 Pulse Ox 97 07/13/18 16:00 Med Orders - Current: Current Medications Discontinued Medications Sodium Chloride (Normal Saline) 1,000 mls @ 125 mls/hr IV STAT GLORY Last Admin: 07/13/18 09:33 Dose: 125 mls/hr Lorazepam (Ativan) 1 mg IVPUSH ONETIME ONE Stop: 07/13/18 11:01 Last Admin: 07/13/18 12:47 Dose: 1 mg Nicotine (Habitrol) 21 mg TRDERM DAILY GLORY Last Admin: 07/13/18 17:59 Dose: Not Given - Free Text/Narrative Note: I have seen and evaluated the patient. I have discussed findings and treatment plan with the resident. I agree with the assessment and plan outlined in the following note.
--- NOTE | 2018-07-13 17:39 | PCM.CONS ---
H&P History of Present Illness - General Date of Service: 07/13/18 Admit Problem/Dx: Admission Diagnosis/Problem Admission Diagnosis/Problem Paresthesia - History of Present Illness Initial Comments - Free Text/Narative: For several months he has noted numbness and discomfort in his upper limbs that is varied in location. He is noted that he's had more prominent symptoms in the last month. Numbness can involve either arm. When it started it was more in the hands, but more recently has been more in the upper arm. Duration of symptoms is highly variable, endorsing from seconds to days. He notes no provoking position. It can occur when at rest. He had similar symptoms in the last couple of days which have not been different than what he's been experiencing the last several months. Yesterday, about 3 PM he noted that he was drooling, any thoughts of left-sided his face was abnormal. He notes it's a little bit better today compared to yesterday. He endorses that his eyes are watering. He may have had some ear pain in his left ear about a week ago. He endorsed a brief episode of dizziness a week ago. He felt a little off balance today after getting the benzodiazepines for the MRI, but otherwise had no problems with balance - Related Data Allergies/Adverse Reactions: Allergies Allergy/AdvReac Type Severity Reaction Status Date / Time ibuprofen [From Motrin] Allergy Anaphylactic Verified 07/12/18 22:42 Shock Home Medications: Home Meds hydroCHLOROthiazide [Hydrochlorothiazide] 1 tab PO DAILY 07/12/18 [History] Nicotine [Habitrol] 21 mg TRDERM DAILY 14 Days #14 patch 07/13/18 [Rx] predniSONE [Prednisone] 60 mg PO DAILY 7 Days #21 tablet 07/13/18 [Rx] Past Medical History HEENT History: Reports: None Cardiovascular History: Reports: Hypertension Respiratory History: Reports: None Gastrointestinal History: Reports: None Genitourinary History: Reports: None Musculoskeletal History: Reports: None Neurological History: Reports: None Psychiatric History: Reports: None Endocrine/Metabolic History: Reports: None Hematologic History: Reports: None Immunologic History: Reports: None Oncologic (Cancer) History: Reports: None Dermatologic History: Reports: None - Infectious Disease History Infectious Disease History: Reports: None - Past Surgical History Head Surgeries/Procedures: Reports: None Cardiovascular Surgical History: Reports: None Respiratory Surgical History: Reports: None GI Surgical History: Reports: None Male Surgical History: Reports: None Endocrine Surgical History: Reports: None Neurological Surgical History: Reports: None Musculoskeletal Surgical History: Reports: None Oncologic Surgical History: Reports: None Dermatological Surgical History: Reports: None Social & Family History - Family History Family Medical History: Noncontributory (DM on mother's side, heart disease on father's side) - Tobacco Use Smoking Status *Q: Current Every Day Smoker Years of Tobacco use: 14 Packs/Tins Daily: 1 - Caffeine Use Caffeine Use: Reports: Coffee - Recreational Drug Use Recreational Drug Use: No H&P Review of Systems - Review of Systems: Review Of Systems: ROS reveals no pertinent complaints other than HPI. Exam - Exam Exam: See Below - Vital Signs Vital Signs: Last Vital Signs Temp 36.4 C 07/13/18 16:00 Pulse 65 07/13/18 16:00 Resp 18 07/13/18 16:00 BP 137/73 07/13/18 16:00 Pulse Ox 97 07/13/18 16:00 Weight: 118.252 kg - Exam Physical Exam Comments:: Constitutional: No acute distress Psychiatric: Mood/Affect: normal/appropriate Neurological: Mental Status: General: Normal activity, good hygiene, appropriate appearance. Level of consciousness: Awake, alert. Orientation: Oriented to person, place, time and situation. Concentration/Attention Span: Normal. Comprehension/Praxis: Able to perform a three step command. Fund of Knowledge/memory: Adequate recent and remote recall. Language: Fluent and articulate without evidence of aphasia or dysarthria. Thought Content: Normal. Insight/Judgement: Normal. Cranial Nerves: Pupils equally round and reactive to light. Visual carbone full to confrontation. Gaze conjugate, EOMI. Sensation intact and symmetric to pinprick. . Mild right eye closure weakness, mild lower facial asymmetry. Decreased furrows on the right forehead. Palate elevates symmetrically. Normal shrug bilaterally. Tongue protrudes midline Motor: Normal tone in all groups. No drift. Power is 5/5 throughout proximal and distal muscles. Sensation: Sensation is intact to pinprick in finger tips and sampled cabrera of forearm vibratory sense intact at great toes. Deep tendon reflexes: Decreased biceps and brachioradialis reflexes. Plantar responses are flexor bilaterally. Coordination: Finger to nose, heel to hardy and rapid alternating movements are intact. Gait: Normal casual gait. Slightly impaired tandem HEENT: Eyes: non icteric, Mouth: moist mucus membranes Cardiovascular: RRR Respiratory: clear lungs - Patient Data Lab Results Last 24 hrs: Laboratory Results - last 24 hr 07/12/18 07/12/18 07/12/18 Range/Units 19:17 19:17 19:17 WBC 13.62 H (4.0-11.0) K/uL RBC 4.96 (4.50-5.90) M/uL Hgb 15.1 (13.0-17.0) g/dL Hct 44.6 (38.0-50.0) % MCV 89.9 (80.0-98.0) fL MCH 30.4 (27.0-32.0) pg MCHC 33.9 (31.0-37.0) g/dL RDW Std Deviation 50.3 (28.0-62.0) fl RDW Coeff of Chary 15 (11.0-15.0) % Plt Count 318 (150-400) K/uL MPV 9.10 (7.40-12.00) fL Neut % (Auto) 57.5 (48.0-80.0) % Lymph % (Auto) 32.2 (16.0-40.0) % [place] % (Auto) 8.4 (0.0-15.0) % Eos % (Auto) 1.7 (0.0-7.0) % Baso % (Auto) 0.2 (0.0-1.5) % Neut # (Auto) 7.8 H (1.4-5.7) K/uL Lymph # (Auto) 4.4 H (0.6-2.4) K/uL [place] # (Auto) 1.1 H (0.0-0.8) K/uL Eos # (Auto) 0.2 (0.0-0.7) K/uL Baso # (Auto) 0.0 (0.0-0.1) K/uL Nucleated RBC % 0.0 /100WBC Nucleated RBCs # 0 K/uL INR 0.92 Sodium 137 (136-148) mmol/L Potassium 3.5 (3.5-5.1) mmol/L Chloride 102 (98-107) mmol/L Carbon Dioxide 23.9 (21.0-32.0) mmol/L BUN 10 (7.0-18.0) mg/dL Creatinine 1.2 (0.8-1.3) mg/dL Est Cr Clr Drug Dosing TNP Estimated GFR (MDRD) > 60.0 ml/min Glucose 133 H (74-106) mg/dL Hemoglobin A1c (4.5-6.2) % Calcium 8.9 (8.5-10.1) mg/dL Magnesium (1.8-2.4) mg/dL Total Bilirubin 0.2 (0.2-1.0) mg/dL AST 12 L (15-37) IU/L ALT 27 (14-63) IU/L Alkaline Phosphatase 119 H (46-116) U/L Troponin I < 0.050 (0.000-0.056) ng/mL Total Protein 7.3 (6.4-8.2) g/dL Albumin 3.5 (3.4-5.0) g/dL Globulin 3.8 (2.6-4.0) g/dL Albumin/Globulin Ratio 0.9 (0.9-1.6) TSH 3rd Generation 1.68 (0.36-3.74) uIU/mL Urine Color Urine Appearance Urine pH (5.0-8.0) Ur Specific [place] (1.001-1.035) Urine Protein (NEGATIVE) mg/dL Urine Glucose (UA) (NEGATIVE) mg/dL Urine Ketones (NEGATIVE) mg/dL Urine Occult Blood (NEGATIVE) Urine Nitrite (NEGATIVE) Urine Bilirubin (NEGATIVE) Urine Urobilinogen (<2.0) EU/dL Ur Leukocyte Esterase (NEGATIVE) Urine RBC (0-2/HPF) Urine WBC (0-5/HPF) Ur Epithelial Cells (NONE-FEW) Urine Bacteria (NEGATIVE) Urine Opiates Screen (NEGATIVE) Ur Oxycodone Screen (NEGATIVE) Urine Methadone Screen (NEGATIVE) Ur Barbiturates Screen (NEGATIVE) Ur Phencyclidine Scrn (NEGATIVE) Ur Amphetamine Screen (NEGATIVE) U Methamphetamines Scrn (NEGATIVE) U Benzodiazepines Scrn (NEGATIVE) U Cocaine Metab Screen (NEGATIVE) U Marijuana (THC) Screen (NEGATIVE) 07/12/18 07/12/18 07/12/18 Range/Units 19:17 20:24 20:24 WBC (4.0-11.0) K/uL RBC (4.50-5.90) M/uL Hgb (13.0-17.0) g/dL Hct (38.0-50.0) % MCV (80.0-98.0) fL MCH (27.0-32.0) pg MCHC (31.0-37.0) g/dL RDW Std Deviation (28.0-62.0) fl RDW Coeff of Chary (11.0-15.0) % Plt Count (150-400) K/uL MPV (7.40-12.00) fL Neut % (Auto) (48.0-80.0) % Lymph % (Auto) (16.0-40.0) % [place] % (Auto) (0.0-15.0) % Eos % (Auto) (0.0-7.0) % Baso % (Auto) (0.0-1.5) % Neut # (Auto) (1.4-5.7) K/uL Lymph # (Auto) (0.6-2.4) K/uL [place] # (Auto) (0.0-0.8) K/uL Eos # (Auto) (0.0-0.7) K/uL Baso # (Auto) (0.0-0.1) K/uL Nucleated RBC % /100WBC Nucleated RBCs # K/uL INR Sodium (136-148) mmol/L Potassium (3.5-5.1) mmol/L Chloride (98-107) mmol/L Carbon Dioxide (21.0-32.0) mmol/L BUN (7.0-18.0) mg/dL Creatinine (0.8-1.3) mg/dL Est Cr Clr Drug Dosing Estimated GFR (MDRD) ml/min Glucose (74-106) mg/dL Hemoglobin A1c (4.5-6.2) % Calcium (8.5-10.1) mg/dL Magnesium 1.7 L (1.8-2.4) mg/dL Total Bilirubin (0.2-1.0) mg/dL AST (15-37) IU/L ALT (14-63) IU/L Alkaline Phosphatase (46-116) U/L Troponin I (0.000-0.056) ng/mL Total Protein (6.4-8.2) g/dL Albumin (3.4-5.0) g/dL Globulin (2.6-4.0) g/dL Albumin/Globulin Ratio (0.9-1.6) TSH 3rd Generation (0.36-3.74) uIU/mL Urine Color YELLOW Urine Appearance CLEAR Urine pH 6.0 (5.0-8.0) Ur Specific [place] 1.015 (1.001-1.035) Urine Protein NEGATIVE (NEGATIVE) mg/dL Urine Glucose (UA) NEGATIVE (NEGATIVE) mg/dL Urine Ketones NEGATIVE (NEGATIVE) mg/dL Urine Occult Blood TRACE-INTACT H (NEGATIVE) Urine Nitrite NEGATIVE (NEGATIVE) Urine Bilirubin NEGATIVE (NEGATIVE) Urine Urobilinogen 0.2 (<2.0) EU/dL Ur Leukocyte Esterase NEGATIVE (NEGATIVE) Urine RBC 0-2 (0-2/HPF) Urine WBC 0-2 (0-5/HPF) Ur Epithelial Cells RARE (NONE-FEW) Urine Bacteria RARE (NEGATIVE) Urine Opiates Screen NEGATIVE (NEGATIVE) Ur Oxycodone Screen NEGATIVE (NEGATIVE) Urine Methadone Screen NEGATIVE (NEGATIVE) Ur Barbiturates Screen NEGATIVE (NEGATIVE) Ur Phencyclidine Scrn NEGATIVE (NEGATIVE) Ur Amphetamine Screen NEGATIVE (NEGATIVE) U Methamphetamines Scrn NEGATIVE (NEGATIVE) U Benzodiazepines Scrn NEGATIVE (NEGATIVE) U Cocaine Metab Screen NEGATIVE (NEGATIVE) U Marijuana (THC) Screen NEGATIVE (NEGATIVE) 07/13/18 07/13/18 07/13/18 Range/Units 05:40 05:40 05:40 WBC 11.19 H (4.0-11.0) K/uL RBC 4.87 (4.50-5.90) M/uL Hgb 14.6 (13.0-17.0) g/dL Hct 43.9 (38.0-50.0) % MCV 90.1 (80.0-98.0) fL MCH 30.0 (27.0-32.0) pg MCHC 33.3 (31.0-37.0) g/dL RDW Std Deviation 50.9 (28.0-62.0) fl RDW Coeff of Chary 15 (11.0-15.0) % Plt Count 303 (150-400) K/uL MPV 9.60 (7.40-12.00) fL Neut % (Auto) 59.1 (48.0-80.0) % Lymph % (Auto) 32.4 (16.0-40.0) % [place] % (Auto) 6.8 (0.0-15.0) % Eos % (Auto) 1.5 (0.0-7.0) % Baso % (Auto) 0.2 (0.0-1.5) % Neut # (Auto) 6.6 H (1.4-5.7) K/uL Lymph # (Auto) 3.6 H (0.6-2.4) K/uL [place] # (Auto) 0.8 (0.0-0.8) K/uL Eos # (Auto) 0.2 (0.0-0.7) K/uL Baso # (Auto) 0.0 (0.0-0.1) K/uL Nucleated RBC % 0.0 /100WBC Nucleated RBCs # 0 K/uL INR Sodium 140 (136-148) mmol/L Potassium 4.2 (3.5-5.1) mmol/L Chloride 104 (98-107) mmol/L Carbon Dioxide 26.6 (21.0-32.0) mmol/L BUN 9 (7.0-18.0) mg/dL Creatinine 1.1 (0.8-1.3) mg/dL Est Cr Clr Drug Dosing 82.72 Estimated GFR (MDRD) > 60.0 ml/min Glucose 113 H (74-106) mg/dL Hemoglobin A1c 6.7 H (4.5-6.2) % Calcium 8.4 L (8.5-10.1) mg/dL Magnesium (1.8-2.4) mg/dL Total Bilirubin (0.2-1.0) mg/dL AST (15-37) IU/L ALT (14-63) IU/L Alkaline Phosphatase (46-116) U/L Troponin I (0.000-0.056) ng/mL Total Protein (6.4-8.2) g/dL Albumin (3.4-5.0) g/dL Globulin (2.6-4.0) g/dL Albumin/Globulin Ratio (0.9-1.6) TSH 3rd Generation (0.36-3.74) uIU/mL Urine Color Urine Appearance Urine pH (5.0-8.0) Ur Specific [place] (1.001-1.035) Urine Protein (NEGATIVE) mg/dL Urine Glucose (UA) (NEGATIVE) mg/dL Urine Ketones (NEGATIVE) mg/dL Urine Occult Blood (NEGATIVE) Urine Nitrite (NEGATIVE) Urine Bilirubin (NEGATIVE) Urine Urobilinogen (<2.0) EU/dL Ur Leukocyte Esterase (NEGATIVE) Urine RBC (0-2/HPF) Urine WBC (0-5/HPF) Ur Epithelial Cells (NONE-FEW) Urine Bacteria (NEGATIVE) Urine Opiates Screen (NEGATIVE) Ur Oxycodone Screen (NEGATIVE) Urine Methadone Screen (NEGATIVE) Ur Barbiturates Screen (NEGATIVE) Ur Phencyclidine Scrn (NEGATIVE) Ur Amphetamine Screen (NEGATIVE) U Methamphetamines Scrn (NEGATIVE) U Benzodiazepines Scrn (NEGATIVE) U Cocaine Metab Screen (NEGATIVE) U Marijuana (THC) Screen (NEGATIVE) Result Diagrams: 07/13/18 05:40 07/13/18 05:40 Imaging Impressions Last 24 hrs: Head Ct - no acute process Hgb A1c 6.7 TSH normal Consult PN Assessment/Plan (1) Facial paresis SNOMED Code(s): 63771664 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 I dont have a clear explanation for upper limb paresthesias, but they have present for months and likely unrelated to presenting complaint. Symptoms are not typical of cerebral ischemia. -Course of prednisone consider prednisone 60 mg X 1 week then taper by 10 mg daily until off -recheck BP and glucose check within one (HTN and now new diagnoses of DM) -eye patch and drops while sleeping while eye closure weakness present due to risk of corneal damage -head CT in next few days to r/o evidence of evolving stroke
== END 2018-07-13 17:45 | disposition home or self-care (01) ==
LOC: MW.ED 18:54 → MW.MS 21:14
PROVIDERS: ADMIT Internal Medicine; ATTEND Internal Medicine
DX: G51.0 Bell's palsy (principal); R20.2 Paresthesia of skin; E11.9 Type 2 diabetes mellitus without complications; I10 Essential (primary) hypertension; F17.200 Nicotine dependence, unspecified, uncomplicated; Z79.899 Other long term (current) drug therapy
CPT/HCPCS: 36415; 70450; 71045; 80048; 80053; 80305; 81001; 83036; 83735; 84443; 84484; 85025; 85610; 93005; 96361; 96374; 99285; G0378; J2060; J7040; 96360

== ENCOUNTER 2018-11-30 00:46 | Emergency (ER) | payer BC ==
--- NOTE | 2018-11-30 01:23 | EDM.PDOC ---
ED HPI GENERAL MEDICAL PROBLEM - General Chief Complaint: Skin Complaint Stated Complaint: SPIDER BITE? ON MID BACK Time Seen by Provider: 11/30/18 01:18 - History of Present Illness INITIAL COMMENTS - FREE TEXT/NARRATIVE: HISTORY AND PHYSICAL: History of present illness: Patient's a 53-year-old white male presents with a concern of subcutaneous nodule on his upper back with increased redness and pain he states his did express some material from this and now is developed redness and discomfort. No fever chills nausea vomiting or other complaints Review of systems: As per history of present illness and below otherwise all systems reviewed and negative. Past medical history: As per history of present illness and as reviewed below otherwise noncontributory. Surgical history: As per history of present illness and as reviewed below otherwise noncontributory. Social history: No reported history of drug or alcohol abuse. Family history: As per history of present illness and as reviewed below otherwise noncontributory. Physical exam: HEENT: Atraumatic, normocephalic, pupils reactive, negative for conjunctival pallor or scleral icterus, mucous membranes moist, throat clear, neck supple, nontender, trachea midline. Lungs: Clear to auscultation, breath sounds equal bilaterally, chest nontender. Heart: S1S2, regular, negative for clicks, rubs, or JVD. Abdomen: Soft, nondistended, nontender. Negative for masses or hepatosplenomegaly. Negative for costovertebral tenderness. Pelvis: Stable nontender. Genitourinary: Deferred. Rectal: Deferred. Extremities: Atraumatic, negative for cords or calf pain. Neurovascular unremarkable. Neuro: Awake, alert, oriented. Cranial nerves II through XII unremarkable. Cerebellum unremarkable. Motor and sensory unremarkable throughout. Exam nonfocal. Back: Patient has a subcutaneous nodule in his mid upper thoracic region with some surrounding erythema warmth minimal induration and no fluctuance consistent with more likely a sebaceous cyst or lipoma. Diagnostics: None Therapeutics: None Impression: #1 subcutaneous lesion rule out lipoma versus sebaceous cyst with early superficial cellulitis Definitive disposition and diagnosis as appropriate pending reevaluation and review of above. Sore on Mid Back Pain Score (Numeric/FACES): 7 - Related Data Allergies Allergy/AdvReac Type Severity Reaction Status Date / Time ibuprofen [From Motrin] Allergy Anaphylactic Verified 11/30/18 00:54 Shock Home Meds: Home Meds hydroCHLOROthiazide [Hydrochlorothiazide] 0.5 tab PO DAILY 07/12/18 [History] Metoprolol Succinate 100 mg PO DAILY 11/30/18 [History] Past Medical History HEENT History: Reports: None Cardiovascular History: Reports: Hypertension Respiratory History: Reports: None Gastrointestinal History: Reports: None Genitourinary History: Reports: None Musculoskeletal History: Reports: None Neurological History: Reports: None Psychiatric History: Reports: None Endocrine/Metabolic History: Reports: None Hematologic History: Reports: None Immunologic History: Reports: None Oncologic (Cancer) History: Reports: None Dermatologic History: Reports: None - Infectious Disease History Infectious Disease History: Reports: None - Past Surgical History Head Surgeries/Procedures: Reports: None Respiratory Surgical History: Reports: None GI Surgical History: Reports: None Male Surgical History: Reports: None Endocrine Surgical History: Reports: None Neurological Surgical History: Reports: None Musculoskeletal Surgical History: Reports: None Oncologic Surgical History: Reports: None Dermatological Surgical History: Reports: None Social & Family History - Family History Family Medical History: Noncontributory - Tobacco Use Smoking Status *Q: Current Every Day Smoker Years of Tobacco use: 14 Packs/Tins Daily: 1 - Caffeine Use Caffeine Use: Reports: Coffee - Recreational Drug Use Recreational Drug Use: No ED ROS GENERAL - Review of Systems Review Of Systems: ROS reveals no pertinent complaints other than HPI. ED EXAM, SKIN/RASH Exam: See Below (Dictation) Course - Vital Signs Last Recorded V/S: Last Vital Signs Temp 36.1 C 11/30/18 00:55 Pulse 94 11/30/18 00:55 Resp 20 11/30/18 00:55 BP 187/111 H 11/30/18 00:55 Pulse Ox 98 11/30/18 00:55 Departure - Departure Time of Disposition: 01:23 Disposition: Home, Self-Care 01 Condition: Good Clinical Impression: Cellulitis, Subcutaneous nodule - Discharge Information Referrals: Lalo Olmstead MD [Primary Care Provider] - Additional Instructions: The following information is given to patients seen in the emergency department who are being discharged to home. This information is to outline your options for follow-up care. We provide all patients seen in our emergency department with a follow-up referral. The need for follow-up, as well as the timing and circumstances, are variable depending upon the specifics of your emergency department visit. If you don't have a primary care physician on staff, we will provide you with a referral. We always advise you to contact your personal physician following an emergency department visit to inform them of the circumstance of the visit and for follow-up with them and/or the need for any referrals to a consulting specialist. The emergency department will also refer you to a specialist when appropriate. This referral assures that you have the opportunity for followup care with a specialist. All of these measure are taken in an effort to provide you with optimal care, which includes your followup. Under all circumstances we always encourage you to contact your private physician who remains a resource for coordinating your care. When calling for followup care, please make the office aware that this follow-up is from your recent emergency room visit. If for any reason you are refused follow-up, please contact the [facility] emergency department at and asked to speak to the emergency department charge nurse. [facility] - General Surgery Professional Building [address] [place] [address], [address] [place] [address] Bactrim as prescribed follow-up Gen. surgery above call to schedule appointment return as needed as discussed
== END 2018-11-30 01:32 | disposition home or self-care (01) ==
LOC: MW.ED 00:46
DX: L03.312 Cellulitis of back [any part except buttock and flank] (principal); I10 Essential (primary) hypertension; F17.210 Nicotine dependence, cigarettes, uncomplicated; Z88.6 Allergy status to analgesic agent; Z79.899 Other long term (current) drug therapy
CPT/HCPCS: 99283

== ENCOUNTER 2018-12-22 10:27 | Day surgery (SDC) | payer BC ==
--- NOTE | 2018-12-22 11:02 | PCM.PREANE ---
Preanesthetic Assessment - Anesthesia/Transfusion/Family Hx Anesthesia History: Prior Anesthesia Without Reaction Family History of Anesthesia Reaction: No Transfusion History: No Prior Transfusion(s) Intubation History: Unknown - Review of Systems General: No Symptoms Pulmonary: No Symptoms Cardiovascular: No Symptoms Gastrointestinal: No Symptoms Neurological: No Symptoms Other: Reports: None - Physical Assessment Vital Signs: Last Vital Signs Temp 36.1 C 12/22/18 10:36 Pulse 61 12/22/18 10:36 Resp 16 12/22/18 10:36 BP 158/100 H 12/22/18 10:36 Pulse Ox 98 12/22/18 10:36 Height: 5 ft 11 in Weight: 119.295 kg ASA Class: 2 Mental Status: Alert & Oriented x3 Airway Class: Mallampati = 2 Dentition: Reports: Normal Dentition Thyro-Mental Finger Breadths: 3 Mouth Opening Finger Breadths: 3 ROM/Head Extension: Full Lungs: Clear to Auscultation, Normal Respiratory Effort Cardiovascular: Regular Rate, Regular Rhythm - Allergies Allergies/Adverse Reactions: Allergies Allergy/AdvReac Type Severity Reaction Status Date / Time ibuprofen [From Motrin] Allergy Anaphylactic Verified 12/22/18 08:05 Shock - Blood Blood Available: No - Anesthesia Plan Pre-Op Medication Ordered: None - Acknowledgements Anesthesia Type Planned: General Anesthesia Pt an Appropriate Candidate for the Planned Anesthesia: Yes Alternatives and Risks of Anesthesia Discussed w Pt/Guardian: Yes Pt/Guardian Understands and Agrees with Anesthesia Plan: Yes PreAnesthesia Questionnaire HEENT History: Reports: Other (See Below) Other HEENT History: wears glasses Cardiovascular History: Reports: Hypertension Respiratory History: Reports: None Gastrointestinal History: Reports: PUD Genitourinary History: Reports: None Musculoskeletal History: Reports: Gout Neurological History: Reports: Other (See Below) Other Neuro History: hx of Dennis Palsy Psychiatric History: Reports: Other (See Below) Other Psychiatric History: Claustrophobic Endocrine/Metabolic History: Reports: Obesity/BMI 30+ Hematologic History: Reports: None Immunologic History: Reports: None Oncologic (Cancer) History: Reports: None Dermatologic History: Reports: Other (See Below) Other Dermatologic History: has open area on chest from previous I&D - Infectious Disease History Infectious Disease History: Reports: None - Past Surgical History Head Surgeries/Procedures: Reports: None Cardiovascular Surgical History: Reports: None Respiratory Surgical History: Reports: None GI Surgical History: Reports: Hernia, Inguinal (as child) Other GI Surgeries/Procedures: Inguinal hernia repair as a child Male Surgical History: Reports: None Endocrine Surgical History: Reports: None Neurological Surgical History: Reports: None Musculoskeletal Surgical History: Reports: None Oncologic Surgical History: Reports: None Dermatological Surgical History: Reports: Skin Biopsy - SUBSTANCE USE Smoking Status *Q: Current Every Day Smoker (1 ppd) Tobacco Use Within Last Twelve Months: Cigarettes Recreational Drug Use History: No - HOME MEDS Home Medications: Home Meds Clindamycin HCl 300 mg PO TID 12/18/18 [History] Aspirin [Adult Low Dose Aspirin EC] 81 mg PO DAILY 12/22/18 [History] Metoprolol Succinate 100 mg PO QAM 12/22/18 [History] Omeprazole Magnesium [Prilosec Otc] 20 mg PO DAILY 12/22/18 [History] hydroCHLOROthiazide [Hydrochlorothiazide] 25 mg PO QAM 12/22/18 [History]
[2018-12-22] MEDS ORDERED: Propofol 200 MG/20 ML SDV ONE (12:30)
[2018-12-22] MEDS ORDERED: Midazolam 1 MG/ML 2 ML SDV ONE (12:30)
[2018-12-22] MEDS ORDERED: ceFAZolin 1 GM Vial ONE (13:20)
[2018-12-22] MEDS ORDERED: Bupivacaine 0.5% 30 ML SDV ONE (13:20)
[2018-12-22] MEDS ORDERED: Clindamycin Phosphate in D5W 600 MG in Premix Bag 1 BAG IV ONE ×2 (13:30)
[2018-12-22] MEDS ORDERED: Lidocaine 1% 20 ML MDV ONE (13:53)
--- NOTE | 2018-12-22 14:18 | PCM.OPNOTE ---
- General Post-Op/Procedure Note Date of Surgery/Procedure: 12/22/18 Operative Procedure(s): I&D back abscess Findings: Infected sebaceous cyst with fistula Pre Op Diagnosis: abscess Post-Op Diagnosis: infected sebaceous cyst with fistula Anesthesia Technique: Moderate Sedation Primary Surgeon: Estephania Waddell Fluid Replacement, Intraop: 800 EBL in mLs: 10 Complications: None Condition: Good
--- NOTE | 2018-12-22 14:42 | PCM.POSTAN ---
POST ANESTHESIA ASSESSMENT - MENTAL STATUS Mental Status: Alert, Oriented - VITAL SIGNS Vital Signs: Last Vital Signs Temp 36.1 C 12/22/18 10:36 Pulse 57 L 12/22/18 14:31 Resp 24 H 12/22/18 14:31 BP 125/73 12/22/18 14:31 Pulse Ox 97 12/22/18 14:31 - RESPIRATORY Respiratory Status: Respiratory Rate WNL, Airway Patent, O2 Saturation Stable - CARDIOVASCULAR CV Status: Pulse Rate WNL, Blood Pressure Stable - GASTROINTESTINAL GI Status: No Symptoms - PAIN Pain Score: 4 - POST OP HYDRATION Hydration Status: Adequate & Stable - OBSERVATIONS Free Text/Narrative:: no anesthesia problems
[2018-12-22] MEDS ORDERED: Acetaminophen/HYDROcodone 325-5 MG Tab PO PRN (15:03)
--- NOTE | 2018-12-22 15:31 | PCM48HPAN ---
Post Anesthesia Note - EVALUATION WITHIN 48HRS OF ANESTHETIC Vital Signs in Normal Range: Yes Patient Participated in Evaluation: Yes Respiratory Function Stable: Yes Airway Patent: Yes Cardiovascular Function Stable: Yes Hydration Status Stable: Yes Pain Control Satisfactory: Yes Nausea and Vomiting Control Satisfactory: Yes Mental Status Recovered: Yes Vital Signs: Last Vital Signs Temp 36.5 C 12/22/18 14:40 Pulse 64 12/22/18 15:10 Resp 14 12/22/18 15:10 BP 147/79 H 12/22/18 15:10 Pulse Ox 96 12/22/18 15:10 - COMMENTS/OBSERVATIONS Free Text/Narrative:: no anesthesia problems
--- NOTE | 2018-12-22 18:21 | OR ---
SURGEON: MARIA DE JESUS HANNAH MD DATE OF PROCEDURE: 12/22/2018 PREOPERATIVE DIAGNOSIS: Upper back abscess. POSTOPERATIVE DIAGNOSES: Infected sebaceous cyst with cutaneous fistula. PROCEDURE PERFORMED: Incision and drainage of sebaceous cyst and fistula. INDUCTION MACHINE OPERATOR: Residential Caregiver: Dr. Lalo Chung MD, vice president of consulting services. FLUIDS: 800 mL of crystalloid. ESTIMATED BLOOD LOSS: 10 mL. FINDINGS: Infected sebaceous cyst on the upper back with a subcutaneous fistula extending to the left lateral side. COMPLICATIONS: None. INDICATIONS: The patient is a 53-year-old male who originally came to my office with complaints of cellulitis and possible folliculitis. This was first treated with antibiotics, but then failed outpatient management. An incision and drainage was made over the draining area, but the infection persisted. Antibiotics were broadened, but he continued to fail outpatient management. The decision was made to proceed to the operating room for a more aggressive incision and drainage with exploration of the wound. I explained the procedure, expected perioperative course including the need for dressing changes as well as the risks including bleeding or infection. The patient verbalized understanding and wishes to proceed. PROCEDURE IN DETAIL: The patient was brought into the OR and placed in the left lateral decubitus position on the OR cart. A time-out was completed verifying the patient's name, age, date of , allergies, and procedure to be performed. Monitored anesthesia care was induced. The upper back was prepped and draped in the usual standard fashion. I anesthetized the open draining tract with 0.5% Marcaine plain as well as 1% lidocaine plain. A 15 blade was used to make an incision over the top of this lesion. I then used a cautery to dissect down to the level of subcutaneous fat. The skin was thickened and inflamed. I used a hemostat to explore the wound and found that it actually tracked medially to a sebaceous cyst, which was proximal to the lesion. I extended the incision to the sebaceous cyst. The sebaceous cyst was opened and found to contain both proteinaceous and purulent material. I removed a small ellipse of tissue to allow better opening and drainage along this fistula tract and over the sebaceous cyst. The sebaceous cyst wall was partially necrotic. A curette was used to debride this necrotic-appearing tissue. The wound was then irrigated with normal saline and hemostasis was achieved using electrocautery. The wound was measured and found to be 5 cm x 2 cm x 2 cm deep. The wound was packed with moistened 4x4 gauze and covered with dry 4x4 gauze. This was secured in place using Medipore tape. The patient was awoken and taken to PACU in a stable condition. All counts were complete and correct at the end of the case. ARAM LIGHT /[id number]
== END 2018-12-22 15:45 | disposition home or self-care (01) ==
LOC: MW.SDS 10:27
PROVIDERS: ATTEND Surgery
DX: L72.3 Sebaceous cyst (principal); L98.8 Other specified disorders of the skin and subcutaneous tissue; I10 Essential (primary) hypertension; F17.210 Nicotine dependence, cigarettes, uncomplicated; N52.9 Male erectile dysfunction, unspecified; Z88.6 Allergy status to analgesic agent; Z79.82 Long term (current) use of aspirin; Z79.899 Other long term (current) drug therapy
CPT/HCPCS: 10060; A9270; J2001; J2250; J2704; J3490; 00300; J0690

== ENCOUNTER 2019-04-15 20:08 | Emergency (ER) | payer BC ==
--- NOTE | 2019-04-15 21:03 | EDM.PDOC ---
ED HPI GENERAL MEDICAL PROBLEM - General Chief Complaint: Allergic Reaction Stated Complaint: ALLERGIC REACTION Time Seen by Provider: 04/15/19 20:44 Source of Information: Reports: Patient History Limitations: Reports: No Limitations - History of Present Illness INITIAL COMMENTS - FREE TEXT/NARRATIVE: HISTORY AND PHYSICAL: History of present illness: Patient is a 54-year-old male presents to the ED today with concern of a rash that he thinks is potentially allergic. Patient states he had tried out a new soap that he first used on his face and then used on his body. Patient states yesterday he started feeling itchiness of his neville and had a rash under his neville. Patient states starting today he has had itching/ rash of his arms and his back. Patient states he has not taken anything for his symptoms. Patient denies any associated symptoms. Patient denies fever, chills, chest pain, shortness of breath, or cough. Denies headache, neck stiff ness, change in vision, syncope, or near syncope. Denies nausea, vomiting, abdominal pain, diarrhea, constipation, or dysuria. Has not noted any blood in urine or stool. Patient has been eating and drinking appropriately. Review of systems: As per history of present illness and below otherwise all systems reviewed and negative. Past medical history: As per history of present illness and as reviewed below otherwise noncontributory. Surgical history: As per history of present illness and as reviewed below otherwise noncontributory. Social history: See social history for further information Family history: As per history of present illness and as reviewed below otherwise noncontributory. Physical exam: General: Patient is alert, oriented, and in no acute distress. Patient sitting comfortably on exam table. HEENT: Atraumatic, normocephalic, pupils equal and reactive bilaterally, negative for conjunctival pallor or scleral icterus, mucous membranes moist, TMs normal bilaterally, throat clear, neck supple, nontender, trachea midline. No drooling or trismus noted. No meningeal signs. No hot potato voice noted. Lungs: Clear to auscultation, breath sounds equal bilaterally, chest nontender. Heart: S1S2, regular rate and rhythm without overt murmur Abdomen: Soft, nondistended, nontender. Negative for masses or hepatosplenomegaly. Negative for costovertebral tenderness. Pelvis: Stable nontender. Genitourinary: Deferred. Rectal: Deferred. Skin: Intact, warm, dry. No lesions noted. Patient has a nonspecific dry macular rash of the chin, lower back, and bilateral forearms without petechiae or purpura. Extremities: Atraumatic, negative for cords or calf pain. Neurovascular unremarkable. Neuro: Awake, alert, oriented. Cranial nerves II through XII unremarkable. Cerebellum unremarkable. Motor and sensory unremarkable throughout. Exam nonfocal. Notes: Discussed the importance for follow-up with the primary care provider. Voices understanding and is agreeable to plan of care. Denies any further questions or concerns at this time. Diagnostics: None Therapeutics: None Prescription: Medrol Dosepak Impression: Dermatitis Plan: 1. Avoid triggers. Continue to monitor for possible exposures/triggers/foods. 2. While symptomatic continue to routinely take Benadryl. Take the medication as prescribed. 3. You may use topical calamine lotion, cool tempid oatmeal baths, Aveeno bath/ lotions. 4. Consider formal allergy testing once you have completed your medications and have improved. 5. Please follow up with your Primary care doctor as discussed. Return to the ED as needed and as discussed. Definitive disposition and diagnosis as appropriate pending reevaluation and review of above. - Related Data Allergies Allergy/AdvReac Type Severity Reaction Status Date / Time ibuprofen [From Motrin] Allergy Anaphylactic Verified 12/22/18 08:05 Shock Home Meds: Home Meds Clindamycin HCl 300 mg PO TID 12/18/18 [History] Aspirin [Adult Low Dose Aspirin EC] 81 mg PO DAILY 12/22/18 [History] Metoprolol Succinate 100 mg PO QAM 12/22/18 [History] Omeprazole Magnesium [Prilosec Otc] 20 mg PO DAILY 12/22/18 [History] hydroCHLOROthiazide [Hydrochlorothiazide] 25 mg PO QAM 12/22/18 [History] methylPREDNISolone [Medrol] 4 mg PO ASDIRECTED #1 dosepk 04/15/19 [Rx] Past Medical History HEENT History: Reports: Other (See Below) Other HEENT History: wears glasses Cardiovascular History: Reports: Hypertension Respiratory History: Reports: None Gastrointestinal History: Reports: PUD Genitourinary History: Reports: None Musculoskeletal History: Reports: Gout Neurological History: Reports: Other (See Below) Other Neuro History: hx of Baxter Palsy Psychiatric History: Reports: Other (See Below) Other Psychiatric History: Claustrophobic Endocrine/Metabolic History: Reports: Obesity/BMI 30+ Hematologic History: Reports: None Immunologic History: Reports: None Oncologic (Cancer) History: Reports: None Dermatologic History: Reports: Other (See Below) Other Dermatologic History: has open area on chest from previous I&D - Infectious Disease History Infectious Disease History: Reports: None - Past Surgical History Head Surgeries/Procedures: Reports: None Cardiovascular Surgical History: Reports: None Respiratory Surgical History: Reports: None GI Surgical History: Reports: Hernia, Inguinal Other GI Surgeries/Procedures: Inguinal hernia repair as a child Male Surgical History: Reports: None Endocrine Surgical History: Reports: None Neurological Surgical History: Reports: None Musculoskeletal Surgical History: Reports: None Oncologic Surgical History: Reports: None Dermatological Surgical History: Reports: Skin Biopsy Social & Family History - Family History Family Medical History: Noncontributory - Tobacco Use Smoking Status *Q: Current Every Day Smoker Years of Tobacco use: 28 Packs/Tins Daily: 1 - Caffeine Use Caffeine Use: Reports: None - Recreational Drug Use Recreational Drug Use: No ED ROS ALLERGIC REACTION - Review of Systems Review Of Systems: Comprehensive ROS is negative, except as noted in HPI. ED EXAM GENERAL NO PERIP PULSE - Physical Exam Exam: See Below (see dictation) Course - Vital Signs Last Recorded V/S: Last Vital Signs Temp 97.2 F 04/15/19 20:15 Pulse 96 04/15/19 20:15 Resp 16 04/15/19 20:15 BP 162/84 H 04/15/19 20:15 Pulse Ox 96 04/15/19 20:15 Departure - Departure Time of Disposition: 21:01 Disposition: Home, Self-Care 01 Clinical Impression: Dermatitis - Discharge Information Prescriptions: methylPREDNISolone [Medrol] 4 mg PO ASDIRECTED #1 dosepk Referrals: Lalo Olmstead MD [Primary Care Provider] - Additional Instructions: The following information is given to patients seen in the emergency department who are being discharged to home. This information is to outline your options for follow-up care. We provide all patients seen in our emergency department with a follow-up referral. The need for follow-up, as well as the timing and circumstances, are variable depending upon the specifics of your emergency department visit. If you don't have a primary care physician on staff, we will provide you with a referral. We always advise you to contact your personal physician following an emergency department visit to inform them of the circumstance of the visit and for follow-up with them and/or the need for any referrals to a consulting specialist. The emergency department will also refer you to a specialist when appropriate. This referral assures that you have the opportunity for follow-up care with a specialist. All of these measure are taken in an effort to provide you with optimal care, which includes your follow-up. Under all circumstances we always encourage you to contact your private physician who remains a resource for coordinating your care. When calling for follow-up care, please make the office aware that this follow-up is from your recent emergency room visit. If for any reason you are refused follow-up, please contact the [facility] Emergency Department at and asked to speak to the emergency department charge nurse. [facility] [address] [place] [id number] [address] [address] 1. Avoid triggers. Continue to monitor for possible exposures/triggers/foods. 2. While symptomatic continue to routinely take Benadryl. Take the medication as prescribed. 3. You may use topical calamine lotion, cool tempid oatmeal baths, Aveeno bath/ lotions. 4. Consider formal allergy testing once you have completed your medications and have improved. 5. Please follow up with your Primary care doctor as discussed. Return to the ED as needed and as discussed. Sepsis Event Note - Evaluation Sepsis Screening Result: No Definite Risk - Focused Exam Vital Signs: Vital Signs Temp Pulse Resp BP Pulse Ox 04/15/19 20:15 97.2 F 96 16 162/84 H 96 Date Exam was Performed: 04/15/19 Time Exam was Performed: 20:59
== END 2019-04-15 21:26 | disposition home or self-care (01) ==
LOC: MW.ED 20:08
DX: L30.9 Dermatitis, unspecified (principal); F17.210 Nicotine dependence, cigarettes, uncomplicated; Z88.6 Allergy status to analgesic agent; Z79.82 Long term (current) use of aspirin; Z79.899 Other long term (current) drug therapy
CPT/HCPCS: 99282

== ENCOUNTER 2021-03-04 03:00 | Emergency (ER) | payer BC ==
--- NOTE | 2021-03-04 03:01 | EDM.PDOC ---
ED HPI GENERAL MEDICAL PROBLEM - General Stated Complaint: ALLERGIC REACTION Time Seen by Provider: 03/04/21 03:25 Source of Information: Reports: Patient History Limitations: Reports: No Limitations - History of Present Illness INITIAL COMMENTS - FREE TEXT/NARRATIVE: 56-year-old male presents for skin reaction. Patient states that 3 days ago he put on hair dye on his facial hair. He has since had an adverse reaction with rash to the area. It worsened this morning - Related Data Allergies Allergy/AdvReac Type Severity Reaction Status Date / Time ibuprofen [From Motrin] Allergy Anaphylactic Verified 03/04/21 03:11 Shock Home Meds: Home Meds Clindamycin HCl 300 mg PO TID 12/18/18 [History] Aspirin [Adult Low Dose Aspirin EC] 81 mg PO DAILY 12/22/18 [History] Metoprolol Succinate 100 mg PO QAM 12/22/18 [History] Omeprazole Magnesium [Prilosec Otc] 20 mg PO DAILY 12/22/18 [History] hydroCHLOROthiazide [Hydrochlorothiazide] 25 mg PO QAM 12/22/18 [History] methylPREDNISolone [Medrol] 4 mg PO ASDIRECTED #1 dosepk 04/15/19 [Rx] Hydrocortisone [Hydrocortisone 2.5% Crm] 1 appful TOP TID #1 bottle 03/04/21 [Rx] Hydrocortisone [Hydrocortisone 2.5% Crm] 1 appful TOP TID 7 Days #1 bottle 03/04/21 [Rx] predniSONE 40 mg PO DAILY 4 Days #8 tab 03/04/21 [Rx] predniSONE 40 mg PO DAILY 5 Days #10 tab 03/04/21 [Rx] Past Medical History HEENT History: Reports: Other (See Below) Other HEENT History: wears glasses Cardiovascular History: Reports: Hypertension Respiratory History: Reports: None Gastrointestinal History: Reports: PUD Genitourinary History: Reports: None Musculoskeletal History: Reports: Gout Neurological History: Reports: Other (See Below) Other Neuro History: hx of [place] Palsy Psychiatric History: Reports: Other (See Below) Other Psychiatric History: Claustrophobic Endocrine/Metabolic History: Reports: Obesity/BMI 30+ Hematologic History: Reports: None Immunologic History: Reports: None Oncologic (Cancer) History: Reports: None Dermatologic History: Reports: Other (See Below) Other Dermatologic History: has open area on chest from previous I&D - Infectious Disease History Infectious Disease History: Reports: None - Past Surgical History Head Surgeries/Procedures: Reports: None Cardiovascular Surgical History: Reports: None Respiratory Surgical History: Reports: None GI Surgical History: Reports: Hernia, Inguinal Other GI Surgeries/Procedures: Inguinal hernia repair as a child Male Surgical History: Reports: None Endocrine Surgical History: Reports: None Neurological Surgical History: Reports: None Musculoskeletal Surgical History: Reports: None Oncologic Surgical History: Reports: None Dermatological Surgical History: Reports: Skin Biopsy Social & Family History - Family History Family Medical History: No Pertinent Family History - Caffeine Use Caffeine Use: Reports: None ED ROS GENERAL - Review of Systems Review Of Systems: Comprehensive ROS is negative, except as noted in HPI. ED EXAM, GENERAL - Physical Exam Exam: See Below Exam Limited By: No Limitations General Appearance: Alert, WD/WN, No Apparent Distress Ears: Hearing Grossly Normal Throat/Mouth: Normal Voice, No Airway Compromise Head: Atraumatic, Normocephalic Respiratory/Chest: No Respiratory Distress, Lungs Clear, Normal Breath Sounds, No Accessory Muscle Use Cardiovascular: Normal Peripheral Pulses, Regular Rate, Rhythm Extremities: Normal Inspection Neurological: Alert, Normal Cognition, Normal Gait Psychiatric: Normal Affect, Normal Mood Skin Exam: Warm, Dry, Intact, Normal Color, Other (blistering rash around perioral face) Course - Vital Signs Last Recorded V/S: Last Vital Signs Temp 97.2 F 03/04/21 03:12 Pulse 78 03/04/21 03:12 Resp 18 03/04/21 03:12 BP 141/78 H 03/04/21 03:12 Pulse Ox 97 03/04/21 03:12 - Orders/Labs/Meds Orders: Active Orders 24 hr Category Date Time Status Hydrocortisone [Proctozone-HC 2.5% Crm] Med 03/04/21 03:23 Stat 1 gm TOP STAT STA predniSONE Med 03/04/21 03:23 Stat 40 mg PO STAT STA Meds: Medications Discontinued Medications Generic Name Dose Route Start Last Admin Trade Name Freq PRN Reason Stop Dose Admin Hydrocortisone 1 gm 03/04/21 03:23 Hydrocortisone 2.5% Crm 30 Gm Tube TOP 03/04/21 03:24 STAT STA Prednisone 40 mg 03/04/21 03:23 Prednisone 20 Mg Tab PO 03/04/21 03:24 STAT STA - Re-Assessments/Exams Free Text/Narrative Re-Assessment/Exam: 03/04/21 03:25 We will give prednisone with prescription for prednisone. Will give hydrocortisone cream 3 times daily. Dermatology referral. Departure - Departure Time of Disposition: 03:25 Disposition: Home, Self-Care 01 Condition: Good Clinical Impression: Rash - Discharge Information Prescriptions: Hydrocortisone [Hydrocortisone 2.5% Crm] 1 appful TOP TID 7 Days #1 bottle Hydrocortisone [Hydrocortisone 2.5% Crm] 1 appful TOP TID #1 bottle predniSONE 40 mg PO DAILY 5 Days #10 tab predniSONE 40 mg PO DAILY 4 Days #8 tab Instructions: Rash, Adult Additional Instructions: The following information is given to patients seen in the emergency department who are being discharged to home. This information is to outline your options for follow-up care. We provide all patients seen in our emergency department with a follow-up referral. The need for follow-up, as well as the timing and circumstances, are variable depending upon the specifics of your emergency department visit. If you don't have a primary care physician on staff, we will provide you with a referral. We always advise you to contact your personal physician following an emergency department visit to inform them of the circumstance of the visit and for follow-up with them and/or the need for any referrals to a consulting specialist. The emergency department will also refer you to a specialist when appropriate. This referral assures that you have the opportunity for follow-up care with a specialist. All of these measure are taken in an effort to provide you with optimal care, which includes your follow-up. Under all circumstances we always encourage you to contact your private physician who remains a resource for coordinating your care. When calling for follow-up care, please make the office aware that this follow-up is from your recent emergency room visit. If for any reason you are refused follow-up, please contact the [facility] Emergency Department at and asked to speak to the emergency department charge nurse. Please follow up with your primary care physician. If you do not have a primary care physician, see below: [facility] [address] [place] [id number] [facility] [address] [place] [id number] [facility] [address] [place] [id number] Sepsis Event Note (ED) - Focused Exam Vital Signs: Vital Signs Temp Pulse Resp BP Pulse Ox 03/04/21 03:12 97.2 F 78 18 141/78 H 97 - My Orders Last 24 Hours: My Active Orders 03/04/21 03:23 Hydrocortisone [Proctozone-HC 2.5% Crm] 1 gm TOP STAT STA predniSONE 40 mg PO STAT STA - Assessment/Plan Last 24 Hours: My Active Orders 03/04/21 03:23 Hydrocortisone [Proctozone-HC 2.5% Crm] 1 gm TOP STAT STA predniSONE 40 mg PO STAT STA
[2021-03-04] MEDS ORDERED: predniSONE 20 MG Tab PO STA (03:23)
[2021-03-04] MEDS ORDERED: Hydrocortisone 2.5% Crm 30 GM Tube TOP STA (03:23)
== END 2021-03-04 03:35 | disposition home or self-care (01) ==
LOC: MW.ED 03:00
DX: R21 Rash and other nonspecific skin eruption (principal); I10 Essential (primary) hypertension; M10.9 Gout, unspecified; E66.9 Obesity, unspecified; Z68.36 Body mass index [BMI] 36.0-36.9, adult; Z88.6 Allergy status to analgesic agent; Z79.82 Long term (current) use of aspirin; Z79.899 Other long term (current) drug therapy
CPT/HCPCS: 99282; A9270

== ENCOUNTER 2022-05-28 22:47 | Emergency (ER) | payer BC ==
[2022-05-28] MEDS ORDERED: Orphenadrine 60 MG/2 ML Inj IM ONE (23:08)
[2022-05-28] MEDS ORDERED: Ketorolac 30 MG/ML SDV IM STA (23:08)
== END 2022-05-29 01:01 | disposition home or self-care (01) ==
LOC: MW.ED 22:47
DX: S76.312A Strain of muscle, fascia and tendon of the posterior muscle group at thigh level, left thigh, initial encounter (principal); S76.311A Strain of muscle, fascia and tendon of the posterior muscle group at thigh level, right thigh, initial encounter; S39.012A Strain of muscle, fascia and tendon of lower back, initial encounter; I10 Essential (primary) hypertension; F17.210 Nicotine dependence, cigarettes, uncomplicated; E66.9 Obesity, unspecified; Z88.8 Allergy status to other drugs, medicaments and biological substances; Z79.899 Other long term (current) drug therapy; Z68.35 Body mass index [BMI] 35.0-35.9, adult
CPT/HCPCS: 51798; 72131; 72192; 96372; 99283; J1885; J2360

== ENCOUNTER 2023-02-17 16:37 | Emergency (ER) | payer BC ==
[2023-02-17] MEDS ORDERED: Sodium Chloride 0.9% 10 ML Syringe FLUSH PRN (16:48)
[2023-02-17] MEDS ORDERED: Sodium Chloride 0.9% 2.5 ML Syringe FLUSH PRN (16:48)
[2023-02-17] MEDS ORDERED: Sodium Chloride 0.9% 1,000 ML IV ONE ×2 (16:48→18:20)
[2023-02-17 18:07] LABS: BASOPHILS ABSOLUTE AUTO 0.03 K/uL (0.00-0.20); BASOPHILS PERCENT AUTO 0.2 % (0.0-1.0); HEMATOCRIT 17.6 % (42.0-52.0); HEMOGLOBIN 6.3 g/dL (14.0-18.0); IMMATURE GRAN ABSOLUTE AUTO 0.39 K/uL (0.00-0.05); LYMPHOCYTES ABSOLUTE AUTO 1.51 K/uL (1.00-4.80); LYMPHOCYTES PERCENT AUTO 7.7 % (24.0-44.0); MEAN CORPUSCULAR HEMOGLOBIN 31.3 pg (28.0-32.0); MEAN CORPUSCULAR HGB CONC 35.8 g/dL (32.0-36.0); MEAN CORPUSCULAR VOLUME 87.6 fL (83.0-99.0); MEAN PLATELET VOLUME 9.5 fL (9.4-12.4); MONOCYTES ABSOLUTE AUTO 0.89 K/uL (0.00-0.80); MONOCYTES PERCENT AUTO 4.5 % (0.0-8.0); NEUTROPHILS ABSOLUTE AUTO 16.76 K/uL (1.80-7.70); NEUTROPHILS PERCENT AUTO 85.6 % (41.0-71.0); PLATELET COUNT,PLT 239 K/uL (150-400); RED BLOOD CELL COUNT 2.01 M/uL (4.52-5.90); WHITE BLOOD CELL COUNT,WBC 19.58 K/uL (3.9-11.3)
[2023-02-17] MEDS ORDERED: Pantoprazole 80 MG in Sodium Chloride 0.9% 10 ML IVPUSH ONE (18:27)
[2023-02-17 18:33] LABS: A/G RATIO 0.5 (0.9-1.6); ALBUMIN 1.8 g/dL (3.4-5.0); BILIRUBIN TOTAL 0.3 mg/dL (0.2-1.0); CALCIUM 7.4 mg/dL (8.5-10.1); CARBON DIOXIDE,CO2 25.1 mmol/L (21.0-32.0); CREATININE 1.8 mg/dL (0.8-1.3); EST CRCL DRUG DOSING (CG) 46.75 mL/min; MAGNESIUM 2.1 mg/dL (1.8-2.4); PROTEIN TOTAL,TP 5.2 g/dL (6.4-8.2)
[2023-02-17 18:46] LABS: INR 1.01 (0.86-1.11); PTT,PARTIAL THROMBOPLSTIN TIME 25.7 SEC (23.9-30.7)
[2023-02-17 19:14] LABS: APPEARANCE,URINE CLEAR; BILIRUBIN,URINE NEGATIVE (NEGATIVE); COLOR,URINE YELLOW; GLUCOSE,URINE NEGATIVE (NEGATIVE); KETONES,URINE NEGATIVE (NEGATIVE); LEUKOCYTE ESTERASE,URINE NEGATIVE (NEGATIVE); NITRITE,URINE NEGATIVE (NEGATIVE); OCCULT BLOOD,URINE NEGATIVE (NEGATIVE); PH,URINE 5.5 (5.0-8.0); PROTEIN,URINE NEGATIVE (NEGATIVE); UROBILINOGEN,URINE 0.2 EU/dL (<2.0)
== END 2023-02-17 21:40 ==
LOC: MW.ED 16:37
DX: K92.2 Gastrointestinal hemorrhage, unspecified (principal); R55 Syncope and collapse; I10 Essential (primary) hypertension; E66.9 Obesity, unspecified
CPT/HCPCS: 36415; 36430; 70450; 74176; 80053; 81003; 83690; 83735; 84484; 85025; 85610; 85730; 86850; 86900; 86901; 86920; 96361; 96374; 99285; C9113; J3490; J7030; P9016; 93010; 99291